=== PATIENT | male | born 1945 | race Caucasian/White ===

== ENCOUNTER 2016-12-08 20:34 | Inpatient (IN) ==
--- NOTE | 2016-12-08 20:47 | Emergency Department Note ---
Disposition Clinical Impression: Pneumonia Disposition: Admitted As Inpatient Condition: Good General Adult HPI - General Chief complaint: ED Dizziness Stated complaint: CONGESTION Time Seen by Provider: 12/08/16 20:36 Source: patient, EMS Limitations: no limitations - History of Present Illness Pain Scale: 0 - Related Data Home Medications Medication Instructions Recorded Confirmed Lisinopril [Zestril] 10 mg PO HS 01/27/15 12/08/16 Simvastatin [Zocor] 40 mg PO HS 01/27/15 12/08/16 Folic Acid/Vit Bcomp,C [Folbee 5 mg PO DAILY 12/08/16 12/08/16 Plus Tablet] Oxycodone HCl/Acetaminophen 1 - 2 each PO Q6H PRN 12/08/16 12/08/16 [Percocet 5-325 mg Tablet] Trazodone HCl 100 - 150 mg PO HS 12/08/16 12/08/16 Allergies Allergy/AdvReac Type Severity Reaction Status Date / Time Sulfa (Sulfonamide Allergy Rash Verified 01/13/15 09:12 Antibiotics) sulfamethoxazole Allergy Rash Verified 01/13/15 09:12 [From Bactrim] trimethoprim Allergy Rash Verified 01/13/15 09:12 atorvastatin [From Lipitor] AdvReac Muscle Pain Verified 01/13/15 09:12 Past Medical History - Past Medical History Medical history: Reports: hyperlipidemia, hypertension, myocardial infarction Psychiatric history: Reports: no psych history - Social History Smoking Status: Current every day smoker Smokeless Tobacco Status: No Alcohol use: Reports: none Drug use: Reports: none Physical Exam - General Limitations: no limitations General appearance: alert Course Vital Signs Temperature 102.3 F H 12/08/16 20:41 Pulse Rate 98 12/08/16 20:41 Respiratory Rate 18 12/08/16 20:41 Blood Pressure 112/76 12/08/16 20:41 O2 Sat by Pulse Oximetry 95 12/08/16 20:41 Temperature 102.3 F H 12/08/16 20:41 Pulse Rate 98 12/08/16 20:41 Respiratory Rate 18 12/08/16 20:41 Blood Pressure 112/76 12/08/16 20:41 O2 Sat by Pulse Oximetry 95 12/08/16 20:41 Oxygen Delivery Oxygen Delivery Room Air Medical Decision Making - Lab Data Result diagrams: 12/08/16 20:53 12/08/16 20:53 Lab Results 12/08/16 12/08/16 12/08/16 Range/Units 20:53 20:53 20:53 WBC 13.3 H (4.3-11.1) K/mcL RBC 4.39 (4.19-5.50) M/mcL Hgb 14.7 (12.9-16.9) g/dL Hct 42.9 (37.5-50.1) % MCV 97.7 (83.0-100.0) fL MCH 33.5 H (28.0-33.3) pg MCHC 34.3 (31.6-35.5) g/dL RDW 12.0 (11.5-14.5) % Plt Count 176 (140-400) K/mcL MPV 8.4 L (9.4-12.4) fL Immature Gran % 0.4 (0-4) % Seg Neutrophils % 93.1 % Lymphocytes % 2.4 % Monocytes % 3.9 % Eosinophils % 0.0 % Basophils % 0.2 % Neutrophils # 12.4 H (1.6-8.9) K/mcL Lymphocytes # 0.3 L (0.6-4.6) K/mcL Monocytes # 0.5 (0.0-1.3) K/mcL Eosinophils # 0.0 (0.0-0.6) K/mcL Basophils # 0.0 (0.0-0.2) K/mcL Sodium 136 (136-145) mEq/L Potassium 4.1 (3.5-4.5) mEq/L Chloride 103 (98-109) mEq/L Carbon Dioxide 24 (19-29) mEq/L BUN 18 (8-26) mg/dL Creatinine 1.12 (0.72-1.25) mg/dL Est GFR ( Amer) > 60 (> 60) Est GFR (Non-Af Amer) > 60 (> 60) BUN/Creatinine Ratio 16 (6-26) Glucose 140 H (70-99) mg/dL Calculated Osmolality 286 (280-300) Lactic Acid (0.5-2.2) mmol/L Calcium 9.4 (8.6-10.8) mg/dL Phosphorus 1.4 L (2.3-4.7) mg/dL Magnesium 1.6 (1.6-2.6) mg/dL Total Bilirubin 0.8 (0.2-1.2) mg/dL Direct Bilirubin 0.4 (0.0-0.5) mg/dL Indirect Bilirubin 0.4 (0.0-1.2) mg/dL AST 16 (5-34) Units/L ALT 12 (0-55) Units/L Alkaline Phosphatase 81 (38-126) Units/L Troponin I 0.01 (0-0.03) ng/mL Serum Total Protein 7.4 (6.0-8.3) g/dL Albumin 3.5 (3.5-5.0) g/dL Globulin 3.9 H (2.4-3.5) g/dL Albumin/Globulin Ratio 0.9 L (1.1-2.2) Urine Color (Yellow) Urine Clarity (Clear) Urine pH (5.0-8.0) pH Units Ur Specific [place] (1.010-1.025) Urine Protein (Neg-Trace) mg/dL Urine Glucose (UA) (Normal) mg/dL Urine Ketones (Negative) mg/dL Urine Blood (Negative) Urine Nitrite (Negative) Urine Bilirubin (Negative) Urine Urobilinogen (Normal) mg/dL Ur Leukocyte Esterase (Negative) Urine Microscopic RBC (0-3) per hpf Urine Microscopic WBC (0-3) per hpf Ur Squamous Epith Cells (None-Few) per lpf Urine Bacteria (None-Few) per hpf Hyaline Casts (None-Few) per lpf Ur Culture Indicated? (NO) Specimen Rejected 12/08/16 12/08/16 12/08/16 Range/Units 21:13 21:14 21:25 WBC (4.3-11.1) K/mcL RBC (4.19-5.50) M/mcL Hgb (12.9-16.9) g/dL Hct (37.5-50.1) % MCV (83.0-100.0) fL MCH (28.0-33.3) pg MCHC (31.6-35.5) g/dL RDW (11.5-14.5) % Plt Count (140-400) K/mcL MPV (9.4-12.4) fL Immature Gran % (0-4) % Seg Neutrophils % % Lymphocytes % % Monocytes % % Eosinophils % % Basophils % % Neutrophils # (1.6-8.9) K/mcL Lymphocytes # (0.6-4.6) K/mcL Monocytes # (0.0-1.3) K/mcL Eosinophils # (0.0-0.6) K/mcL Basophils # (0.0-0.2) K/mcL Sodium (136-145) mEq/L Potassium (3.5-4.5) mEq/L Chloride (98-109) mEq/L Carbon Dioxide (19-29) mEq/L BUN (8-26) mg/dL Creatinine (0.72-1.25) mg/dL Est GFR ( Amer) (> 60) Est GFR (Non-Af Amer) (> 60) BUN/Creatinine Ratio (6-26) Glucose (70-99) mg/dL Calculated Osmolality (280-300) Lactic Acid 2.3 H (0.5-2.2) mmol/L Calcium (8.6-10.8) mg/dL Phosphorus (2.3-4.7) mg/dL Magnesium (1.6-2.6) mg/dL Total Bilirubin (0.2-1.2) mg/dL Direct Bilirubin (0.0-0.5) mg/dL Indirect Bilirubin (0.0-1.2) mg/dL AST (5-34) Units/L ALT (0-55) Units/L Alkaline Phosphatase (38-126) Units/L Troponin I (0-0.03) ng/mL Serum Total Protein (6.0-8.3) g/dL Albumin (3.5-5.0) g/dL Globulin (2.4-3.5) g/dL Albumin/Globulin Ratio (1.1-2.2) Urine Color Yellow (Yellow) Urine Clarity Clear (Clear) Urine pH 8.0 (5.0-8.0) pH Units Ur Specific [place] 1.024 (1.010-1.025) Urine Protein Trace (Neg-Trace) mg/dL Urine Glucose (UA) Normal (Normal) mg/dL Urine Ketones Negative (Negative) mg/dL Urine Blood Negative (Negative) Urine Nitrite Negative (Negative) Urine Bilirubin Negative (Negative) Urine Urobilinogen Normal (Normal) mg/dL Ur Leukocyte Esterase Negative (Negative) Urine Microscopic RBC 0-3 (0-3) per hpf Urine Microscopic WBC 0-3 (0-3) per hpf Ur Squamous Epith Cells Moderate H (None-Few) per lpf Urine Bacteria None Seen (None-Few) per hpf Hyaline Casts None Seen (None-Few) per lpf Ur Culture Indicated? NO (NO) Specimen Rejected Hemolyzed Attestation Statement - Attestation Attestation: I examined this patient and my medical decision-making was reviewed with the Resident Physician. I agree with the documented findings, disposition and treatment plan as described except to the extent set forth below. [id number] time provided Arrives by EMS from home. Complains of dizziness, chest congestion. Patient febrile but nontoxic-appearing. Family at bedside
[2016-12-08] MEDS ORDERED: 0.9 % Sodium Chloride 1,000 ML IVC ONE (20:48)
[2016-12-08 21:03] LABS: Basophils % 0.2 %; Hematocrit 42.9 % (37.5-50.1); Hemoglobin 14.7 g/dL (12.9-16.9); Immature Granulocytes % 0.4 % (0-4); Lymphocytes # 0.3 K/mcL (0.6-4.6); Lymphocytes % 2.4 %; Mean Corpuscular HGB Conc 34.3 g/dL (31.6-35.5); Mean Corpuscular Hemoglobin 33.5 pg (28.0-33.3); Mean Corpuscular Volume 97.7 fL (83.0-100.0); Mean Platelet Volume 8.4 fL (9.4-12.4); Monocytes # 0.5 K/mcL (0.0-1.3); Monocytes % 3.9 %; Neutrophils # 12.4 K/mcL (1.6-8.9); Platelet Count 176 K/mcL (140-400); Red Blood Count 4.39 M/mcL (4.19-5.50); Segmented Neutrophils % 93.1 %
[2016-12-08] MEDS ORDERED: Levofloxacin 500 MG/100 ML 500 MG/100 ML BAG IVPB ONE (21:13)
[2016-12-08 21:22] LABS: Alanine Aminotransferase 12 Units/L (0-55); Albumin 3.5 g/dL (3.5-5.0); Albumin/Globulin Ratio 0.9 (1.1-2.2); Alkaline Phosphatase 81 Units/L (38-126); Aspartate Amino Transferase 16 Units/L (5-34); BUN/Creatinine Ratio 16 (6-26); Bilirubin,Direct 0.4 mg/dL (0.0-0.5); Bilirubin,Indirect 0.4 mg/dL (0.0-1.2); Bilirubin,Total 0.8 mg/dL (0.2-1.2); Blood Urea Nitrogen 18 mg/dL (8-26); Calcium 9.4 mg/dL (8.6-10.8); Carbon Dioxide 24 mEq/L (19-29); Chloride 103 mEq/L (98-109); Globulin 3.9 g/dL (2.4-3.5); Glucose 140 mg/dL (70-99); Magnesium 1.6 mg/dL (1.6-2.6); Osmolality,Calculated 286 (280-300); Phosphorous 1.4 mg/dL (2.3-4.7); Potassium 4.1 mEq/L (3.5-4.5); Sodium 136 mEq/L (136-145); Total Protein 7.4 g/dL (6.0-8.3); eGFR For African Americans > 60 (> 60); eGFR For Non-African Americans > 60 (> 60)
--- NOTE | 2016-12-08 21:28 | Emergency Department Note ---
Disposition Clinical Impression: Pneumonia Qualifiers: Pneumonia type: due to other aerobic Gram-negative bacteria Laterality: left Lung location: lower lobe of lung Qualified Code(s): J15.6 - Pneumonia due to other Gram-negative bacteria Disposition: Admitted As Inpatient Condition: Good Referrals: Elizabeth Dickey DO [Primary Care Provider] - Forms: ED Satisfaction Letter Time of Disposition: 21:51 General Adult HPI - General Chief complaint: ED Dizziness Stated complaint: DIZZINESS/SOB Time Seen by Provider: 12/08/16 20:36 Source: patient, EMS Limitations: no limitations Nursing Notes Reviewed: Yes Vital Signs Reviewed: Yes - History of Present Illness HPI Narrative: 71-year-old male presenting to the emergency department with chief complaint of dizziness and fever. Patient is accompanied by his daughters to have been taking care of him after his 's . They state he has had decreased appetite and trouble keeping his balance for the past 3-4 weeks. They state he acutely got worse the last 2 days and has felt hot at home. Patient has decreased his oral intake and seemed dry today according to family. Patient has a significant past medical history with 2 stent placements in the early s and a stroke around the same time. Patient has lost a follow-up with cardiology. Patient denies any chest pain, shortness of breath, abdominal pain at this time. He states he does have bilateral lower extremity stabbing pain which is chronic and has been occurring for the past 3 months. He has been told that he has neuropathic pain. Pain Scale: 0 - Related Data Home Medications Medication Instructions Recorded Confirmed Lisinopril [Zestril] 10 mg PO HS 01/27/15 01/27/15 Simvastatin [Zocor] 40 mg PO HS 01/27/15 01/27/15 TraZODone 50 - 100 mg PO HS 01/27/15 01/27/15 Previous Rx's Medication Instructions Recorded OxyCODONE/APAP 10/325 [Percocet 1 each PO Q6HR PRN #39 tablet 01/27/15 10/325] Amoxicillin/Clavulanate [Augmentin] 875 mg PO BIDWM #14 tablet 10/24/15 Allergies Allergy/AdvReac Type Severity Reaction Status Date / Time Sulfa (Sulfonamide Allergy Rash Verified 01/13/15 09:12 Antibiotics) sulfamethoxazole Allergy Rash Verified 01/13/15 09:12 [From Bactrim] trimethoprim Allergy Rash Verified 01/13/15 09:12 atorvastatin [From Lipitor] AdvReac Muscle Pain Verified 01/13/15 09:12 All systems ED: reviewed and negative except as stated. Constitutional: Reports: fever, chills, weakness Eyes: Reports: as per HPI ENT ED: Reports: as per HPI Cardiovascular: Denies: chest pain, palpitations Respiratory: Reports: cough, dyspnea, wheezes Gastrointestinal: Denies: abdominal pain, nausea, vomiting Genitourinary: Reports: as per HPI Musculoskeletal: Reports: as per HPI Integumentary: Reports: as per HPI Neurological: Reports: weakness. Denies: numbness, paresthesias Psychiatric: Reports: as per HPI Endocrine: Reports: as per HPI Hematological/Lymphatic: Reports: as per HPI Allergic/Immunologic: Reports: as per HPI Past Medical History - Past Medical History Attestation: Yes The following information was validated with the patient. Medical history: Reports: hyperlipidemia, hypertension, myocardial infarction Psychiatric history: Reports: no psych history - Social History Smoking Status: Current every day smoker Smokeless Tobacco Status: No Alcohol use: Reports: none Drug use: Reports: none Physical Exam - General Limitations: no limitations General appearance: alert, in no apparent distress - Head Head exam: atraumatic, normocephalic, normal inspection - Eye Eye exam: Present: normal appearance. Absent: scleral icterus, conjunctival injection - Chest Chest inspection: Present: normal inspection, symmetric chest wall rise. Absent : tenderness, rash - Respiratory Respiratory exam: Present: other (Bilateral rhonchi noted in the posterior inferior lung ba). Absent: respiratory distress, wheezes, accessory muscle use - Cardiovascular Cardiovascular exam: Present: regular rate, normal rhythm, systolic murmur (4/6 systolic murmur heard in the right second intercostal space) - Abdominal Exam Abdominal exam: Present: soft, Non-Tender. Absent: distention, guarding, rebound - Extremities Exam Extremities exam: Present: normal inspection, full ROM - Neurological Exam Neurological exam: Present: alert, oriented X3 - Psychiatric Psychiatric exam: Present: normal affect, normal mood - Skin Skin exam: Present: warm, intact Course Course Narrative: 71-year-old male presented to the emergency department with chief complaint of dizziness, weakness and fever. Patient is unstable on his feet in the room. His temperature is 102.3. We will begin a sepsis workup at this time. Patient alert and oriented 3 in the room. He is tachycardic but otherwise stable at this time. - Reevaluation(s) Reevaluation #1: All of the patient's lab work has resulted. He has an elevated lactic acid and a possible left lower lobe pneumonia. We will start treatment with IV Levaquin at this time. Patient alert and oriented 3 in the room with stable vital signs at this time. Family at bedside and agrees with plan of admission. We will page the hospitalist. Hospitalist on-call Dr. Chase accepts the patient at this time. Time: 21:51 Vital Signs Temperature 102.3 F H 12/08/16 20:41 Pulse Rate 98 12/08/16 20:41 Respiratory Rate 18 12/08/16 20:41 Blood Pressure 112/76 12/08/16 20:41 O2 Sat by Pulse Oximetry 95 12/08/16 20:41 Temperature 102.3 F H 12/08/16 20:41 Pulse Rate 98 12/08/16 20:41 Respiratory Rate 18 12/08/16 20:41 Blood Pressure 112/76 12/08/16 20:41 O2 Sat by Pulse Oximetry 95 12/08/16 20:41 Oxygen Delivery Oxygen Delivery Room Air Medical Decision Making - Lab Data Result diagrams: 12/08/16 20:53 12/08/16 20:53 Lab Results 12/08/16 12/08/16 12/08/16 Range/Units 20:53 20:53 20:53 WBC 13.3 H (4.3-11.1) K/mcL RBC 4.39 (4.19-5.50) M/mcL Hgb 14.7 (12.9-16.9) g/dL Hct 42.9 (37.5-50.1) % MCV 97.7 (83.0-100.0) fL MCH 33.5 H (28.0-33.3) pg MCHC 34.3 (31.6-35.5) g/dL RDW 12.0 (11.5-14.5) % Plt Count 176 (140-400) K/mcL MPV 8.4 L (9.4-12.4) fL Immature Gran % 0.4 (0-4) % Seg Neutrophils % 93.1 % Lymphocytes % 2.4 % Monocytes % 3.9 % Eosinophils % 0.0 % Basophils % 0.2 % Neutrophils # 12.4 H (1.6-8.9) K/mcL Lymphocytes # 0.3 L (0.6-4.6) K/mcL Monocytes # 0.5 (0.0-1.3) K/mcL Eosinophils # 0.0 (0.0-0.6) K/mcL Basophils # 0.0 (0.0-0.2) K/mcL Sodium 136 (136-145) mEq/L Potassium 4.1 (3.5-4.5) mEq/L Chloride 103 (98-109) mEq/L Carbon Dioxide 24 (19-29) mEq/L BUN 18 (8-26) mg/dL Creatinine 1.12 (0.72-1.25) mg/dL Est GFR ( Amer) > 60 (> 60) Est GFR (Non-Af Amer) > 60 (> 60) BUN/Creatinine Ratio 16 (6-26) Glucose 140 H (70-99) mg/dL Calculated Osmolality 286 (280-300) Lactic Acid (0.5-2.2) mmol/L Calcium 9.4 (8.6-10.8) mg/dL Phosphorus 1.4 L (2.3-4.7) mg/dL Magnesium 1.6 (1.6-2.6) mg/dL Total Bilirubin 0.8 (0.2-1.2) mg/dL Direct Bilirubin 0.4 (0.0-0.5) mg/dL Indirect Bilirubin 0.4 (0.0-1.2) mg/dL AST 16 (5-34) Units/L ALT 12 (0-55) Units/L Alkaline Phosphatase 81 (38-126) Units/L Troponin I 0.01 (0-0.03) ng/mL Serum Total Protein 7.4 (6.0-8.3) g/dL Albumin 3.5 (3.5-5.0) g/dL Globulin 3.9 H (2.4-3.5) g/dL Albumin/Globulin Ratio 0.9 L (1.1-2.2) Urine Color (Yellow) Urine Clarity (Clear) Urine pH (5.0-8.0) pH Units Ur Specific [place] (1.010-1.025) Urine Protein (Neg-Trace) mg/dL Urine Glucose (UA) (Normal) mg/dL Urine Ketones (Negative) mg/dL Urine Blood (Negative) Urine Nitrite (Negative) Urine Bilirubin (Negative) Urine Urobilinogen (Normal) mg/dL Ur Leukocyte Esterase (Negative) Urine Microscopic RBC (0-3) per hpf Urine Microscopic WBC (0-3) per hpf Ur Squamous Epith Cells (None-Few) per lpf Urine Bacteria (None-Few) per hpf Hyaline Casts (None-Few) per lpf Ur Culture Indicated? (NO) Specimen Rejected 12/08/16 12/08/16 12/08/16 Range/Units 21:13 21:14 21:25 WBC (4.3-11.1) K/mcL RBC (4.19-5.50) M/mcL Hgb (12.9-16.9) g/dL Hct (37.5-50.1) % MCV (83.0-100.0) fL MCH (28.0-33.3) pg MCHC (31.6-35.5) g/dL RDW (11.5-14.5) % Plt Count (140-400) K/mcL MPV (9.4-12.4) fL Immature Gran % (0-4) % Seg Neutrophils % % Lymphocytes % % Monocytes % % Eosinophils % % Basophils % % Neutrophils # (1.6-8.9) K/mcL Lymphocytes # (0.6-4.6) K/mcL Monocytes # (0.0-1.3) K/mcL Eosinophils # (0.0-0.6) K/mcL Basophils # (0.0-0.2) K/mcL Sodium (136-145) mEq/L Potassium (3.5-4.5) mEq/L Chloride (98-109) mEq/L Carbon Dioxide (19-29) mEq/L BUN (8-26) mg/dL Creatinine (0.72-1.25) mg/dL Est GFR ( Amer) (> 60) Est GFR (Non-Af Amer) (> 60) BUN/Creatinine Ratio (6-26) Glucose (70-99) mg/dL Calculated Osmolality (280-300) Lactic Acid 2.3 H (0.5-2.2) mmol/L Calcium (8.6-10.8) mg/dL Phosphorus (2.3-4.7) mg/dL Magnesium (1.6-2.6) mg/dL Total Bilirubin (0.2-1.2) mg/dL Direct Bilirubin (0.0-0.5) mg/dL Indirect Bilirubin (0.0-1.2) mg/dL AST (5-34) Units/L ALT (0-55) Units/L Alkaline Phosphatase (38-126) Units/L Troponin I (0-0.03) ng/mL Serum Total Protein (6.0-8.3) g/dL Albumin (3.5-5.0) g/dL Globulin (2.4-3.5) g/dL Albumin/Globulin Ratio (1.1-2.2) Urine Color Yellow (Yellow) Urine Clarity Clear (Clear) Urine pH 8.0 (5.0-8.0) pH Units Ur Specific [place] 1.024 (1.010-1.025) Urine Protein Trace (Neg-Trace) mg/dL Urine Glucose (UA) Normal (Normal) mg/dL Urine Ketones Negative (Negative) mg/dL Urine Blood Negative (Negative) Urine Nitrite Negative (Negative) Urine Bilirubin Negative (Negative) Urine Urobilinogen Normal (Normal) mg/dL Ur Leukocyte Esterase Negative (Negative) Urine Microscopic RBC 0-3 (0-3) per hpf Urine Microscopic WBC 0-3 (0-3) per hpf Ur Squamous Epith Cells Moderate H (None-Few) per lpf Urine Bacteria None Seen (None-Few) per hpf Hyaline Casts None Seen (None-Few) per lpf Ur Culture Indicated? NO (NO) Specimen Rejected Hemolyzed
[2016-12-08 21:37] LABS: Bilirubin,Urine Negative (Negative); Blood,Urine Negative (Negative); Clarity,Urine Clear (Clear); Color,Urine Yellow (Yellow); Glucose,Urine (UA) Normal (Normal); Ketones,Urine Negative (Negative); Leukocyte Esterase,Urine Negative (Negative); Nitrite,Urine Negative (Negative); Protein,Urine Trace mg/dL (Neg-Trace); Specific Gravity,Urine 1.024 (1.010-1.025); Urobilinogen,Urine Normal (Normal)
[2016-12-08 21:40] LABS: Bacteria,Urine None Seen per hpf (None-Few); Hyaline Casts,Urine None Seen per lpf (None-Few); RBC,Urine 0-3 per hpf (0-3); Squamous Epithelial Cell,Urine Moderate per lpf (None-Few); WBC,Urine 0-3 per hpf (0-3)
[2016-12-08] MEDS ORDERED: Nicotine 21 MG PATCH.TD24 TD ONE (21:53)
[2016-12-08] MEDS ORDERED: Levofloxacin 250 MG/50 ML 250 MG/50 ML BAG IVPB ONE (22:47)
--- NOTE | 2016-12-09 00:33 | Internal Med History&Physical ---
<ChaseJeancarlos - Last Filed: 12/09/16 00:44> Date of Encounter: 12/09/16 Time of Encounter: 00:26 Assessment and Plan (1) Sepsis Current visit: Yes Status: Acute Secondary to community acquired pneumonia as seen on CXR; 3/4 SIRS upon admission (WBC, tachy, fever) Will hydrate with NS @ 100 ml/hr as he does appear mildly dry on exam Start on Levaquin until cultures return Qualifiers: Qualified Code(s): A41.9 - Sepsis, unspecified organism (2) Community acquired pneumonia Current visit: Yes Status: Acute CXR demonstrated left lower lobe consolidation and he does have corresponding rales in that area Will start on Levaquin 750 mg IV daily and await cultures prior to de-escalation Obtaining urinary strep and legionella antigens Qualifiers: Laterality: left Lung location: lower lobe of lung Qualified Code(s): J18.1 - Lobar pneumonia, unspecified organism (3) Weakness Current visit: Yes Status: Chronic Unclear etiology at this time, but likely multifactorial in setting of acute infection Cannot rule out intracranial abnormalities such as cerebellar lesions, so will obtain head CT w/o contrast for now He also has systolic murmur so we will further evaluate with echocardiogram (4) COPD (chronic obstructive pulmonary disease) with emphysema Current visit: Yes Status: Suspected Although never formally diagnosed, he has moderately severe emphysema seen on CT last month Will certainly benefit from outpatient PFT to assess severity of disease and may need breathing treatments/oxygen upon discharge Qualifiers: Qualified Code(s): J43.9 - Emphysema, unspecified (5) Hypertension Current visit: Yes Status: Chronic Blood pressures WNL upon arrival Will continue home Lisinopril and monitor vitals closely Qualifiers: Qualified Code(s): I10 - Essential (primary) hypertension (6) Hyperlipidemia Current visit: Yes Status: Chronic Continue home Zocor dose Qualifiers: Hyperlipidemia type: unspecified Qualified Code(s): E78.5 - Hyperlipidemia , unspecified (7) MOSES (obstructive sleep apnea) Current visit: Yes Status: Suspected Daughters state patient is heavy snorer and has witnessed apnea Will benefit from outpatient sleep study and may qualify for CPAP (8) DVT prophylaxis Current visit: Yes Status: Acute Heparin 5000 units BID Internal Medicine - H&P: HPI Chief complaint: fever Admitted From: Home Plans for Post Hospital Care: Home History of present illness: Mr. Lugo is a 71 year old male who presents with fever and generalized weakness. He is accompanied by two daughters whom live with patient and are able to assist with history. He states that he was at the [employer] festival earlier today and felt hot and sweaty. He then went home and felt the chills. He has no history of pneumonia, recent hospitalizations, or immunosuppression. He has not be formally diagnosed with COPD but he did have a CT scan last month with showed moderately severe emphysema. He does have a chronic cough with clear /yellow sputum and continues to smoke. Patient's daughters were particularly concerned about his weakness and his gait as he tends to shuffle his feet. He does have history of falls but has never had any syncope and has never had this worked up. Of note, patient did have a ministroke without any deficits, [place] with stents in the 90s, and stable AAA. He currently denies any chest pain, shortness of breath, nausea, vomiting, diarrhea, urinary problems. Past Med Surg Social Fam HX - Past Medical History Medical history: hyperlipidemia, hypertension, myocardial infarction Psychiatric history: no psych history - Social History Smoking Status: Current every day smoker Packs per day: 1.5 Smokeless Tobacco Status: No Alcohol use: none Drug use: none - Family History Mother Living Status: Hx Family Cardiac Disorders: Yes ("Open Heart Surgery") Hx Family Endocrine Disorder: Yes (Diabetes) Father Living Status: Hx Family Cardiac Disorders: Yes ("Open Heart Surgery") Internal Medicine - H&P: Meds Lisinopril [Zestril] 10 mg PO HS 01/27/15 [History] Simvastatin [Zocor] 40 mg PO HS 01/27/15 [History] Folic Acid/Vit Bcomp,C [Folbee Plus Tablet] 5 mg PO DAILY 12/08/16 [History] Oxycodone HCl/Acetaminophen [Percocet 5-325 mg Tablet] 1 each PO Q6H PRN [History] Trazodone HCl 150 mg PO HS 12/08/16 [History] 3 Allergy/AdvReac Type Severity Reaction Status Date / Time Sulfa (Sulfonamide Allergy Rash Verified 01/13/15 09:12 Antibiotics) sulfamethoxazole Allergy Rash Verified 01/13/15 09:12 [From Bactrim] trimethoprim Allergy Rash Verified 01/13/15 09:12 atorvastatin [From Lipitor] AdvReac Muscle Pain Verified 01/13/15 09:12 All Systems PM: A 10-system review of systems was performed and is negative for pertinent findings except as documented above in the HPI. - Constitutional Constitutional: fever(s), falls, lethargy, weakness, weight loss, no chills, no night sweats - EENT Eyes: no change in vision, no discharge, no pain, no photophobia Ears: no ear discharge, no ear pain, no tinnitus Nose, mouth and throat: no dysphagia, no nasal discharge, no neck pain, no sore throat - Cardiovascular Cardiovascular ROS IM: lightheadedness, no chest pain, no diaphoresis, no dyspnea, no palpitations, no syncope - Respiratory Respiratory: cough, snoring, excessive phlegm production, pain with cough, no dyspnea, no wheezing - Gastrointestinal Gastrointestinal: no abdominal pain, no diarrhea, no hematemesis, no hematochezia, no melena, no nausea, no vomiting - Musculoskeletal Musculoskeletal ROS IM: no numbness, no tingling - Integumentary Integumentary IM: no rash, no unusual bruising - Neurological Neurological ROS: abnormal gait, frequent falls, memory loss (mild forgetfulness per daughters), weakness (generalized), no confusion, no convulsions, no focal weakness, no numbness, no tingling, no tremor(s) - Hematologic/Lymphatic Hematologic/Lymphatic: no easy bruising - Constitutional Vitals: Temp Pulse Resp BP Pulse Ox 99.8 F H 92 18 96/58 96 12/08/16 22:57 12/08/16 22:00 12/08/16 22:57 12/08/16 22:57 12/09/16 00:11 General appearance: Present: cooperative, pleasant, no acute distress, loss of weight, answers questions appropriately - Head Head exam: Present: atraumatic, normocephalic - Eye Eye exam: Present: PERRL, conjuntiva pink, sclera anicteric - Neck Neck exam general surgery: Present: supple, trachea midline. Absent: lymphadenopathy - Respiratory Respiratory exam: Present: rales (left lower lobe). Absent: accessory muscle use, rhonchi, wheezes - Cardiovascular Cardiovascular exam: Present: RRR, +S1, +S2, systolic murmur. Absent: diastolic murmur, gallop, rubs - GI/Abdominal GI/Abdominal exam: Present: normal bowel sounds, soft, no peritoneal signs. Absent: distended, tenderness - Extremities Exam Extremities exam: Present: warm, radial pulses palpable and symmetrical. Absent : calf tenderness, cyanotic, pedal edema - Neurological Exam Neurological exam: Present: alert, oriented X3, no focal deficits. Absent: facial droop, speech deficit Additional comments: normal heel to almonte test and rapid alternating movements bilaterally does have mild shuffling when walking but no tremors noted - Skin Skin exam: Present: dry, intact Internal Med - H&P Results - Labs CBC & Chem 7: 12/08/16 20:53 12/08/16 20:53 <Francisco J Chase - Last Filed: 12/09/16 04:09> Date of Encounter: 12/09/16 Internal Medicine - H&P: HPI History of present illness: Mr. Lugo is a 71 year old male All Systems PM: A 10-system review of systems was performed and is negative for pertinent findings except as documented above in the HPI. - Constitutional Vitals: Temp Pulse Resp BP Pulse Ox 98.5 F 70 16 102/64 100 12/09/16 03:37 12/09/16 03:37 12/09/16 03:37 12/09/16 03:37 12/09/16 03:37 Internal Med - H&P Results - Labs CBC & Chem 7: 12/08/16 20:53 12/08/16 20:53 - Attending Attestation I have seen and examined the patient independently. I have discussed with resident DR Chase regarding the management plan. Agree with the documentation. Patient to present with fever, elevated WBC, and tachycardia, meets criteria of sepsis. Resource of infection is pneumonia. Will place patient on antibiotic and IV fluid. Closely monitor patient.
[2016-12-09] MEDS ORDERED: Ondansetron ODT 4 MG TAB.RAPDIS SL PRN (00:39)
[2016-12-09] MEDS ORDERED: Naloxone 0.4 MG/ML INJ IVP PRN (00:39)
[2016-12-09] MEDS ORDERED: Acetaminophen 325 MG TABLET PO PRN (00:39)
[2016-12-09] MEDS ORDERED: Ipratropium/Albuterol Neb 3 ML IH PRN (00:45)
[2016-12-09] MEDS: traZODone 50 MG TABLET PO SCH ×2 (00:59→21:36)
[2016-12-09] MEDS: 0.9 % Sodium Chloride 1,000 ML IVC SCH ×2 (01:10→13:59)
[2016-12-09] MEDS: Benzonatate 100 MG CAPSULE PO PRN ×2 (03:50→12:05)
[2016-12-09 05:30] LABS: Basophils % 0.1 %; Eosinophils % 0.1 %; Hematocrit 36.2 % (37.5-50.1); Hemoglobin 12.4 g/dL (12.9-16.9); Immature Granulocytes % 0.4 % (0-4); Lymphocytes # 0.9 K/mcL (0.6-4.6); Lymphocytes % 5.4 %; Mean Corpuscular HGB Conc 34.3 g/dL (31.6-35.5); Mean Corpuscular Hemoglobin 33.4 pg (28.0-33.3); Mean Corpuscular Volume 97.6 fL (83.0-100.0); Mean Platelet Volume 8.4 fL (9.4-12.4); Monocytes # 1.2 K/mcL (0.0-1.3); Monocytes % 7.3 %; Neutrophils # 14.3 K/mcL (1.6-8.9); Platelet Count 150 K/mcL (140-400); Red Blood Count 3.71 M/mcL (4.19-5.50); Red Cell Distribution Width 12.2 % (11.5-14.5); Segmented Neutrophils % 86.7 %
[2016-12-09] MEDS: *HR* Heparin 5,000 UNIT/ML VIAL SQ SCH ×2 (05:40→18:00)
[2016-12-09] MEDS: *HR* OxyCODONE/APAP 5/325 TABLET PO PRN ×3 (05:42→18:00)
[2016-12-09 05:44] LABS: BUN/Creatinine Ratio 19 (6-26); Blood Urea Nitrogen 16 mg/dL (8-26); Calcium 8.5 mg/dL (8.6-10.8); Carbon Dioxide 22 mEq/L (19-29); Chloride 105 mEq/L (98-109); Glucose 111 mg/dL (70-99); Osmolality,Calculated 280 (280-300); Potassium 3.9 mEq/L (3.5-4.5); Sodium 134 mEq/L (136-145); eGFR For African Americans > 60 (> 60); eGFR For Non-African Americans > 60 (> 60)
[2016-12-09 06:06] LABS: Thyroid Stimulating Hormone 0.305 mcIU/mL (0.350-4.840)
[2016-12-09] MEDS: Nicotine 14 MG PATCH.TD24 TD SCH (10:27)
--- NOTE | 2016-12-09 12:20 | Internal Med Progress Note ---
Date of Encounter: 12/09/16 Time of Encounter: 12:20 - Assessment and plan (1) Sepsis Current Visit: Yes Status: Acute Assessment and plan: Patient presented with fever and chills, tachycardia, tachypnea, leukocytosis with source of sepsis being pneumonia He is on Levaquin, pneumonia is possibly community acquired with suspected strep Continue same Send sputum culture Follow blood culture, Patient has no O2 requriement at this time, he is hemodynamically stable Qualifiers: Sepsis type: sepsis due to unspecified organism Qualified Code(s): A41.9 - Sepsis, unspecified organism (2) DVT prophylaxis Current Visit: Yes Status: Acute Assessment and plan: Heparin SQ (3) Pneumonia Current Visit: Yes Status: Acute Assessment and plan: As in sepsis Urine Legionella Ag and step Ag negative Influenza negative patient reports never getting flu or pneumococal vaccine Will administer prior to discharge Qualifiers: Pneumonia type: due to unspecified organism Laterality: left Lung location: lower lobe of lung Qualified Code(s): J18.1 - Lobar pneumonia, unspecified organism (4) Hyperlipidemia Current Visit: Yes Status: Chronic Assessment and plan: Continue home meds Qualifiers: Hyperlipidemia type: unspecified Qualified Code(s): E78.5 - Hyperlipidemia , unspecified (5) Hypertension Current Visit: Yes Status: Chronic Assessment and plan: Controlled, continue current meds Qualifiers: Hypertension type: essential hypertension Qualified Code(s): I10 - Essential (primary) hypertension (6) Weakness Current Visit: Yes Status: Chronic Assessment and plan: Dates to 2-3 months prior to admission Check Vit D level PTOT eval (7) COPD (chronic obstructive pulmonary disease) with emphysema Current Visit: Yes Status: Chronic Assessment and plan: Emphysema per PT Patient is a lifetime smoker Ensure PFT as out-patient Repeat imaging recommended after treatment Qualifiers: Emphysema type: unspecified Qualified Code(s): J43.9 - Emphysema, unspecified (8) Tobacco abuse Current Visit: Yes Status: Chronic Assessment and plan: Cessation encouraged NRT (9) Aortic stenosis Current Visit: Yes Status: Chronic Assessment and plan: Moderate per ECHO Asymptomatic No indication for cardiology eval at this time Qualifiers: Cardiac valve disease etiology: nonrheumatic Qualified Code(s): I35.0 - Nonrheumatic aortic (valve) stenosis - Subjective Interval history: 71 M with PMH of HTN, HLD, Tobacco abuse Seen and examined at bedside with family His main complain is generalized weakness and not having enough strength for his daily activities He is admitted and being managed for Sepsis secondary to Right lung pneumonia Incidental finding of moderate and Emphysema he also reports multiple vitamin deficiencies, Vit B12 level WNL, will check Vit D - Constitutional Vitals: Temp Pulse Resp BP Pulse Ox 98.4 F 92 17 103/64 97 12/09/16 11:34 12/09/16 11:34 12/09/16 11:34 12/09/16 11:34 12/09/16 11:34 General appearance: Present: cooperative, pleasant, no acute distress, loss of weight, answers questions appropriately - Head Head exam: Present: atraumatic, normocephalic - Eye Eye exam: Present: PERRL, conjuntiva pink, sclera anicteric Pupils: Present: PERRL - Neck Neck exam general surgery: Present: supple, trachea midline. Absent: lymphadenopathy - Respiratory Respiratory exam: Present: rhonchi, wheezes - Cardiovascular Cardiovascular exam: Present: RRR, +S1, +S2, systolic murmur ( murmur). Absent: diastolic murmur, gallop, rubs - GI/Abdominal GI/Abdominal exam: Present: normal bowel sounds, soft, no peritoneal signs. Absent: distended, tenderness - Extremities Exam Extremities exam: Present: warm, radial pulses palpable and symmetrical. Absent : calf tenderness, cyanotic, pedal edema - Neurological Exam Neurological exam: Present: alert, CN II-XII intact, oriented X3, no focal deficits. Absent: pronater drift, facial droop, speech deficit - Skin Skin exam: Present: dry, intact Internal Medicine: Result - Labs CBC & Chem 7: 12/09/16 05:25 12/09/16 05:25 Labs: Short CBC 12/09/16 Range/Units 05:25 WBC 16.4 H (4.3-11.1) K/mcL Hgb 12.4 L D (12.9-16.9) g/dL Hct 36.2 L (37.5-50.1) % Plt Count 150 (140-400) K/mcL Neutrophils # 14.3 H (1.6-8.9) K/mcL BMP 12/09/16 05:25 Sodium 134 L Potassium 3.9 Chloride 105 Carbon Dioxide 22 BUN 16 Creatinine 0.84 Glucose 111 H Calcium 8.5 L - Impressions Impressions Head CT 12/09/16 08:30 IMPRESSION: 1. No evidence of acute intracranial abnormality. 2. Minimal-mild paranasal sinus disease as described above. D/ / 12/09/2016 09:07:09 Victorino Sanchez MD / [facility] Interpreting Provider: Victorino Sanchez MD Consult Discharge Plan - Plan Referrals: Elizabeth Dickey DO [Primary Care Provider] -
--- NOTE | 2016-12-09 18:31 | Electrocardiograph Report ---
[address] [place] [address] Test Date: 2016-12-08 Pat Name: Sergo Lugo Department: 103 Room: 3B44 Gender: M Art Educator: : 1945 Requested By: Flaquita Mcdaniel Order Number: [id number] Reading MD: Clayton Casas DO Measurements Intervals [place] Rate: 99 P: 52 OR: 188 QRS: 75 QRSD: 103 T: 25 QT: 330 QTc: 386 Interpretive Statements SINUS RHYTHM Poor R wave progression Possible inferior myocardial infarction, age undetermined Electronically Signed On 12-09-2016 18:29:59 EDT by Clayton Casas DO
[2016-12-09] MEDS ORDERED: Nicotine 21 MG PATCH.TD24 TD ONE (21:53)
[2016-12-09] MEDS: Levofloxacin 750 MG/150 ML 750 MG/150 ML BAG IVPB SCH (23:13)
[2016-12-10] MEDS: Benzonatate 100 MG CAPSULE PO PRN ×3 (00:13→20:45)
[2016-12-10] MEDS: *HR* OxyCODONE/APAP 5/325 TABLET PO PRN ×2 (00:13→09:56)
[2016-12-10 03:53] LABS: Basophils % 0.4 %; Eosinophils # 0.1 K/mcL (0.0-0.6); Eosinophils % 1.2 %; Hematocrit 35.4 % (37.5-50.1); Hemoglobin 11.9 g/dL (12.9-16.9); Immature Granulocytes % 0.6 % (0-4); Lymphocytes # 1.7 K/mcL (0.6-4.6); Lymphocytes % 20.4 %; Mean Corpuscular HGB Conc 33.6 g/dL (31.6-35.5); Mean Corpuscular Hemoglobin 33.1 pg (28.0-33.3); Mean Corpuscular Volume 98.6 fL (83.0-100.0); Mean Platelet Volume 9.1 fL (9.4-12.4); Monocytes # 0.6 K/mcL (0.0-1.3); Monocytes % 7.3 %; Neutrophils # 5.7 K/mcL (1.6-8.9); Platelet Count 138 K/mcL (140-400); Red Blood Count 3.59 M/mcL (4.19-5.50); Red Cell Distribution Width 12.2 % (11.5-14.5); Segmented Neutrophils % 70.1 %
[2016-12-10 04:08] LABS: BUN/Creatinine Ratio 17 (6-26); Blood Urea Nitrogen 15 mg/dL (8-26); Calcium 8.7 mg/dL (8.6-10.8); Carbon Dioxide 23 mEq/L (19-29); Chloride 109 mEq/L (98-109); Glucose 89 mg/dL (70-99); Osmolality,Calculated 286 (280-300); Potassium 3.9 mEq/L (3.5-4.5); Sodium 138 mEq/L (136-145); eGFR For African Americans > 60 (> 60); eGFR For Non-African Americans > 60 (> 60)
[2016-12-10] MEDS: *HR* Heparin 5,000 UNIT/ML VIAL SQ SCH ×2 (06:41→18:52)
[2016-12-10] MEDS: Nicotine 14 MG PATCH.TD24 TD SCH (09:56)
--- NOTE | 2016-12-10 12:12 | Internal Med Progress Note ---
Date of Encounter: 12/10/16 Time of Encounter: 12:30 - Assessment and plan (1) Sepsis Current Visit: Yes Status: Acute Assessment and plan: Patient presented with fever and chills, tachycardia, tachypnea, leukocytosis with source of sepsis being pneumonia He is on Levaquin, pneumonia is possibly community acquired with suspected strep Continue same Sputum and blood culture prelim negative Leukocytosis resolved Patient has no O2 requriement at this time, he is hemodynamically stable Anticipate d/c am Qualifiers: Sepsis type: sepsis due to unspecified organism Qualified Code(s): A41.9 - Sepsis, unspecified organism (2) DVT prophylaxis Current Visit: Yes Status: Acute Assessment and plan: Heparin SQ (3) Pneumonia Current Visit: Yes Status: Acute Assessment and plan: As in sepsis Urine Legionella Ag and step Ag negative Influenza negative patient reports never getting flu or pneumococal vaccine Will administer prior to discharge Qualifiers: Pneumonia type: due to unspecified organism Laterality: left Lung location: lower lobe of lung Qualified Code(s): J18.1 - Lobar pneumonia, unspecified organism (4) Hyperlipidemia Current Visit: Yes Status: Chronic Assessment and plan: Continue home meds Qualifiers: Hyperlipidemia type: unspecified Qualified Code(s): E78.5 - Hyperlipidemia , unspecified (5) Hypertension Current Visit: Yes Status: Chronic Assessment and plan: Controlled, continue current meds Qualifiers: Hypertension type: essential hypertension Qualified Code(s): I10 - Essential (primary) hypertension (6) Weakness Current Visit: Yes Status: Chronic Assessment and plan: Dates to 2-3 months prior to admission Vit D lebvel ordered and pending PTOT eval (7) COPD (chronic obstructive pulmonary disease) with emphysema Current Visit: Yes Status: Chronic Assessment and plan: Emphysema per Chest CT Patient is a lifetime smoker Ensure PFT as out-patient Repeat imaging recommended after treatment Qualifiers: Emphysema type: unspecified Qualified Code(s): J43.9 - Emphysema, unspecified (8) Tobacco abuse Current Visit: Yes Status: Chronic Assessment and plan: Cessation encouraged NRT (9) Aortic stenosis Current Visit: Yes Status: Chronic Assessment and plan: Moderate per ECHO Asymptomatic No indication for cardiology eval at this time Qualifiers: Cardiac valve disease etiology: nonrheumatic Qualified Code(s): I35.0 - Nonrheumatic aortic (valve) stenosis - Subjective Interval history: 71 M with PMH of HTN, HLD, Tobacco abuse Seen and examined at bedside with family He is admitted and being managed for Sepsis secondary to Right lung pneumonia Incidental finding of moderate and Emphysema No new complains Cough is improving Awaiting PTOT eval - Constitutional Vitals: Temp Pulse Resp BP Pulse Ox 97.6 F 66 16 112/67 96 12/10/16 11:47 12/10/16 11:47 12/10/16 11:47 12/10/16 11:47 12/10/16 11:47 General appearance: Present: cooperative, pleasant, no acute distress, loss of weight, answers questions appropriately - Head Head exam: Present: atraumatic, normocephalic - Eye Eye exam: Present: PERRL, conjuntiva pink, sclera anicteric Pupils: Present: PERRL - Neck Neck exam general surgery: Present: supple, trachea midline. Absent: lymphadenopathy - Respiratory Respiratory exam: Present: rhonchi - Cardiovascular Cardiovascular exam: Present: RRR, +S1, +S2, systolic murmur - GI/Abdominal GI/Abdominal exam: Present: normal bowel sounds, soft, no peritoneal signs. Absent: distended, tenderness - Extremities Exam Extremities exam: Present: warm, radial pulses palpable and symmetrical. Absent : calf tenderness, cyanotic, pedal edema - Neurological Exam Neurological exam: Present: alert, CN II-XII intact, oriented X3, no focal deficits. Absent: pronater drift, facial droop, speech deficit - Skin Skin exam: Present: dry, intact Internal Medicine: Result - Labs CBC & Chem 7: 12/10/16 03:11 12/10/16 03:11 Labs: Short CBC 12/10/16 Range/Units 03:11 WBC 8.1 D (4.3-11.1) K/mcL Hgb 11.9 L (12.9-16.9) g/dL Hct 35.4 L (37.5-50.1) % Plt Count 138 L (140-400) K/mcL Neutrophils # 5.7 (1.6-8.9) K/mcL BMP 12/10/16 03:11 Sodium 138 Potassium 3.9 Chloride 109 Carbon Dioxide 23 BUN 15 Creatinine 0.90 Glucose 89 Calcium 8.7 Consult Discharge Plan - Plan Referrals: Elizabeth Dickey DO [Primary Care Provider] - 12/16/16 10:00 am
[2016-12-10] MEDS: traZODone 50 MG TABLET PO SCH (20:45)
[2016-12-10] MEDS: Levofloxacin 750 MG/150 ML 750 MG/150 ML BAG IVPB SCH (23:07)
[2016-12-11 05:38] LABS: Basophils % 0.5 %; Eosinophils # 0.1 K/mcL (0.0-0.6); Eosinophils % 1.9 %; Hematocrit 36.2 % (37.5-50.1); Hemoglobin 12.2 g/dL (12.9-16.9); Immature Granulocytes % 0.6 % (0-4); Lymphocytes # 1.2 K/mcL (0.6-4.6); Lymphocytes % 19.6 %; Mean Corpuscular HGB Conc 33.7 g/dL (31.6-35.5); Mean Corpuscular Volume 97.8 fL (83.0-100.0); Mean Platelet Volume 8.9 fL (9.4-12.4); Monocytes # 0.4 K/mcL (0.0-1.3); Monocytes % 6.7 %; Neutrophils # 4.4 K/mcL (1.6-8.9); Platelet Count 163 K/mcL (140-400); Red Cell Distribution Width 12.1 % (11.5-14.5); Segmented Neutrophils % 70.7 %
[2016-12-11] MEDS: *HR* Heparin 5,000 UNIT/ML VIAL SQ SCH (05:53)
[2016-12-11] MEDS: Nicotine 14 MG PATCH.TD24 TD SCH (09:41)
[2016-12-11] MEDS ORDERED: Pneumococcal 23 Valent Vaccine 25 MCG/0.5 ML VIAL IM ONE (09:59)
[2016-12-11] MEDS ORDERED: FLU VACC QS2017-18(6M-36M)/PF 0.5 ML SYRINGE IM ONE (10:00)
[2016-12-11] MEDS ORDERED: FLUARIX QUAD 2017-18 36MOS UP/PF 0.5 ML SYRINGE IM ONE (10:03)
--- NOTE | 2016-12-11 10:42 | Discharge Summary ---
Date of Encounter: 12/11/16 Time of Encounter: 10:10 - Discharge Diagnosis (1) Sepsis Priority: Primary Status: Resolved Qualifiers: Sepsis type: sepsis due to unspecified organism Qualified Code(s): A41.9 - Sepsis, unspecified organism (2) DVT prophylaxis Priority: Primary Status: Acute (3) Pneumonia Priority: Primary Status: Acute Qualifiers: Pneumonia type: due to unspecified organism Laterality: left Lung location: lower lobe of lung Qualified Code(s): J18.1 - Lobar pneumonia, unspecified organism (4) Hyperlipidemia Priority: Secondary Status: Chronic Qualifiers: Hyperlipidemia type: unspecified Qualified Code(s): E78.5 - Hyperlipidemia , unspecified (5) Hypertension Priority: Secondary Status: Chronic Qualifiers: Hypertension type: essential hypertension Qualified Code(s): I10 - Essential (primary) hypertension (6) Weakness Priority: Secondary Status: Chronic (7) COPD (chronic obstructive pulmonary disease) with emphysema Priority: Secondary Status: Chronic Qualifiers: Emphysema type: unspecified Qualified Code(s): J43.9 - Emphysema, unspecified (8) Tobacco abuse Priority: Secondary Status: Chronic (9) Aortic stenosis Priority: Secondary Status: Chronic Qualifiers: Cardiac valve disease etiology: nonrheumatic Qualified Code(s): I35.0 - Nonrheumatic aortic (valve) stenosis - Discharge Medications Prescriptions: Benzonatate [Tessalon] 100 mg PO TID PRN #15 capsule PRN Reason: Cough levoFLOXacin [Levaquin] 750 mg PO DAILY #4 tablet Nicotine Patch [Nicoderm] 14 mg TD DAILY #15 patch.td24 Home Medications: Lisinopril [Zestril] 10 mg PO HS 01/27/15 [History] Simvastatin [Zocor] 40 mg PO HS 01/27/15 [History] Folic Acid/Vit Bcomp,C [Folbee Plus Tablet] 5 mg PO DAILY 12/08/16 [History] Oxycodone HCl/Acetaminophen [Percocet 5-325 mg Tablet] 1 each PO Q6H PRN [History] Trazodone HCl 150 mg PO HS 12/08/16 [History] Benzonatate [Tessalon] 100 mg PO TID PRN #15 capsule 12/11/16 [Rx] Nicotine Patch [Nicoderm] 14 mg TD DAILY #15 patch.td24 10/22/17 [Rx] levoFLOXacin [Levaquin] 750 mg PO DAILY #4 tablet 12/11/16 [Rx] Allergies/Adverse Reactions: 3 Allergy/AdvReac Type Severity Reaction Status Date / Time Sulfa (Sulfonamide Allergy Rash Verified 01/13/15 09:12 Antibiotics) sulfamethoxazole Allergy Rash Verified 01/13/15 09:12 [From Bactrim] trimethoprim Allergy Rash Verified 01/13/15 09:12 atorvastatin [From Lipitor] AdvReac Muscle Pain Verified 01/13/15 09:12 Date of admission: 12/09/16 04:06 Primary care physician: Elizabeth Dickey DO Discharging clinician: Edin Walker Anticipated date of discharge: 12/11/16 - Patient Status Disposition: Home, Self-Care Condition: Good Functional capacity at discharge: independent ambulation Overall status at discharge: patient is back to baseline - Ambulatory Orders Ambulatory Orders: SP PFT screen Time Frame: 1 Month, Facility: [facility], Location: [facility] - Discharge Instructions Instructions: Levofloxacin (By mouth), How to Stop Smoking (DC), Pneumonia, Entry Level Installation Technician (GEN) Follow Up With: Elizabeth Dickey DO [Primary Care Provider] - 12/16/16 10:00 am Additional Instructions: Follow-up appointments: If there is not an appointment listed below, please call your physician and schedule a follow-up appointment. If you have congestive heart failure and your symptoms return, make an appointment with your physician. There is a PFT ordered. This is done at the [facility]. Please call them at [phone] to schedule the exam. Please keep your order and take with you to the appointment. Medication List: Carry an up to date list of medications you are taking at all time. We have given you an updated medication list including any new medications that you have been prescribed. Please provide that list to your primary provider Your prescriptions were called into [facility] on [address] [facility]. Symptoms: If your condition changes or you experience any of the following symptoms, notify your physician immediately: Unusual or worsening pain, fever, persistent nausea and vomiting, bleeding, increase in swelling (especially in your legs), sudden weight gain, extreme dizziness, chest pain, increased drainage or redness from a wound or incision. Go to the emergency department if you experience a problem with breathing. Weights: If you have a history of swelling or shortness of breath, weigh yourself daily and notify your physician if you have a weight gain of two or more pounds in one day or 5 or more pounds in a week. If you experience any of the warning signs for stroke: Sudden numbness or weakness of the face, arm or leg; especially on one side of the body, sudden confusion, trouble speaking or understanding, sudden trouble seeing in one or both eyes, sudden trouble walking, dizziness, loss of balance or coordination, sudden sever headache with no cause; Call 911 or go to the emergency room. Stroke is a medical emergency. Some risk factors for stroke: Age, cigarette smoking, diabetes, excessive alcohol consumption, family history , high blood pressure, overweight, physical inactivity, prior stroke, heart attack, diagnosis of carotid artery stenosis or other artery disease. If you smoke, STOP: Smoking or tobacco use significantly increases your risk of heart and lung disease. Your chance of disease greatly increases if you continue to smoke. For more information, call the [place] [employer] Interactive quit line for smoking cessation QUIT-NOW ( ) - Diet and Activity Activity: resume usual activities as tolerated Diet: low fat, low cholesterol, low salt diet Interval History: See below Hospital course: Mr. Lugo is a 71 year old male with Tobacco abuse, Vit D deficiency, HTN, HLD He was admitted and managed for sepsis secondary to Pneumonia Patient presented with fever and chills, tachycardia, tachypnea, leukocytosis with source of sepsis being pneumonia He is on Levaquin, pneumonia was possibly community acquired with suspected strep Sputum and blood culture were negative Leukocytosis , fever has resolved Patient had no O2 requirement at this time, he is hemodynamically stable Seen and evaluated at bedside with family, no new events, feels clinically improved Incidental finding of emphysema and aortic stenosis on CTA and ECHO respectively PFT scheduled as out-patient, patient is discharged on Levaquin po to complete 7 days of therapy Tobacco cessation encouraged , patient discharged on NRT Influenza and Pneumococcal Vaccine recommended Follow up with PCP PTOT recommends out-patient physical therapy, follow up with PCP to establish this Plan of care discussed with patient and his spouse , verbalized understanding Time spent discussing smoking cessation with patient: 3 to 10 minutes - Time Spent with Patient Total time spent providing and/or coordinating discharge services: Greater than 30 minutes - Constitutional Vitals: Temp Pulse Resp BP Pulse Ox 98.2 F 54 16 111/66 96 12/11/16 07:02 12/11/16 07:02 12/11/16 07:02 12/11/16 07:02 12/11/16 07:02 General appearance: Present: cooperative, A&O X 3, pleasant, no acute distress, loss of weight, answers questions appropriately - Head Head exam: Present: atraumatic, normocephalic - Eye Eye exam: Present: PERRL, conjuntiva pink, sclera anicteric Pupils: Present: PERRL - Neck Neck exam general surgery: Present: supple, trachea midline. Absent: lymphadenopathy - Respiratory Respiratory exam: Present: rhonchi - Cardiovascular Cardiovascular exam: Present: RRR, +S1, +S2, systolic murmur. Absent: diastolic murmur, gallop, rubs - GI/Abdominal GI/Abdominal exam: Present: normal bowel sounds, soft, no peritoneal signs. Absent: distended, tenderness - Extremities Exam Extremities exam: Present: warm, radial pulses palpable and symmetrical. Absent : calf tenderness, cyanotic, pedal edema - Neurological Exam Neurological exam: Present: alert, CN II-XII intact, oriented X3, no focal deficits. Absent: pronater drift, facial droop, speech deficit - Skin Skin exam: Present: dry, intact
[2016-12-11 11:19] VITALS: BP 136/81
== END 2016-12-11 12:15 | disposition home or self-care (01) | DRG 871 ==
LOC: EMEROO 20:34 → 3BNU 20:34 → SUATTDRO 12-09 04:06
PROVIDERS: ADMIT Internal Medicine; ATTEND Internal Medicine

== ENCOUNTER 2019-03-20 20:15 | Inpatient (IN) ==
[2019-03-20 21:18] LABS: Basophils % 0.3 %; Eosinophils % 0.2 %; Hemoglobin 14.7 g/dL (12.9-16.9); Immature Granulocytes % 0.5 % (0-4); Lymphocytes # 1.1 K/mcL (0.6-4.6); Lymphocytes % 12.1 %; Mean Corpuscular HGB Conc 32.7 g/dL (31.6-35.5); Mean Corpuscular Hemoglobin 32.3 pg (28.0-33.3); Mean Corpuscular Volume 98.9 fL (83.0-100.0); Mean Platelet Volume 8.3 fL (9.4-12.4); Monocytes # 0.5 K/mcL (0.0-1.3); Monocytes % 5.2 %; Neutrophils # 7.1 K/mcL (1.6-8.9); Platelet Count 183 K/mcL (140-400); Red Blood Count 4.55 M/mcL (4.19-5.50); Red Cell Distribution Width 14.9 % (11.5-14.5); Segmented Neutrophils % 81.7 %; White Blood Count 8.7 K/mcL (4.3-11.1)
[2019-03-20 21:22] LABS: Bilirubin,Urine Small (Negative); Blood,Urine Negative (Negative); Clarity,Urine Clear (Clear); Color,Urine Dark Yellow (Yellow); Glucose,Urine (UA) Normal (Normal); Ketones,Urine Trace mg/dL (Negative); Leukocyte Esterase,Urine Negative (Negative); Nitrite,Urine Negative (Negative); Protein,Urine 100 mg/dL (Neg-Trace); Urobilinogen,Urine Normal (Normal)
[2019-03-20 21:25] LABS: Bacteria,Urine None Seen per hpf (None-Few); Hyaline Casts,Urine None Seen per lpf (None-Few); RBC,Urine 0-3 per hpf (0-3); Squamous Epithelial Cell,Urine Many per lpf (None-Few); WBC,Urine 0-3 per hpf (0-3)
[2019-03-20 21:41] LABS: BUN/Creatinine Ratio 22 (6-26); Blood Urea Nitrogen 23 mg/dL (8-23); Calcium 10.6 mg/dL (8.6-10.3); Carbon Dioxide 30 mEq/L (23-29); Chloride 98 mEq/L (98-107); Glucose 136 mg/dL (70-105); Osmolality,Calculated 290 (280-300); Potassium 4.1 mEq/L (3.5-5.1); Sodium 137 mEq/L (136-145); eGFR For African Americans > 60 (> 60); eGFR For Non-African Americans > 60 (> 60)
[2019-03-20] MEDS ORDERED: Isovue-370 500 ML BOTTLE IVP ONE (22:25)
[2019-03-20] MEDS ORDERED: *HR* FentaNYL (PF) 100 MCG/2 ML VIAL IVP ONE (22:25)
[2019-03-21] MEDS ORDERED: Ondansetron 4 MG/2 ML VIAL IVP ONE (00:18)
[2019-03-21] MEDS ORDERED: Morphine Sulfate 2 MG/ML SYRINGE IVP ONE (00:47)
[2019-03-21] MEDS ORDERED: 0.9 % Sodium Chloride 1,000 ML IVC ONE (01:42)
[2019-03-21] MEDS ORDERED: Naloxone 0.4 MG/ML INJ IVP PRN (03:05)
[2019-03-21] MEDS: Morphine Sulfate 2 MG/ML SYRINGE IVP PRN ×3 (03:52→12:50)
[2019-03-21] MEDS: traZODone 50 MG TABLET PO PRN (03:53)
[2019-03-21 04:12] LABS: Basophils % 0.2 %; Eosinophils % 0.2 %; Hematocrit 42.2 % (37.5-50.1); Hemoglobin 13.6 g/dL (12.9-16.9); Immature Granulocytes % 0.5 % (0-4); Lymphocytes # 1.2 K/mcL (0.6-4.6); Lymphocytes % 14.8 %; Mean Corpuscular HGB Conc 32.2 g/dL (31.6-35.5); Mean Corpuscular Hemoglobin 32.2 pg (28.0-33.3); Mean Platelet Volume 9.1 fL (9.4-12.4); Monocytes # 0.5 K/mcL (0.0-1.3); Monocytes % 6.1 %; Neutrophils # 6.4 K/mcL (1.6-8.9); Platelet Count 181 K/mcL (140-400); Red Blood Count 4.22 M/mcL (4.19-5.50); Segmented Neutrophils % 78.2 %; White Blood Count 8.2 K/mcL (4.3-11.1)
[2019-03-21 04:32] LABS: BUN/Creatinine Ratio 25 (6-26); Blood Urea Nitrogen 23 mg/dL (8-23); Calcium 10.2 mg/dL (8.6-10.3); Carbon Dioxide 30 mEq/L (23-29); Chloride 99 mEq/L (98-107); Glucose 116 mg/dL (70-105); Osmolality,Calculated 289 (280-300); Potassium 4.1 mEq/L (3.5-5.1); Sodium 137 mEq/L (136-145); eGFR For African Americans > 60 (> 60); eGFR For Non-African Americans > 60 (> 60)
[2019-03-21] MEDS ORDERED: *HR* LORazepam 2 MG/ML VIAL IVP ONE (08:11)
[2019-03-21] MEDS ORDERED: Lidocaine Viscous Oral Soln 15 ML SOLUTION MM ONE (08:16)
[2019-03-21] MEDS ORDERED: Lidocaine Jelly 11 ml Syringe MM STA (08:21)
[2019-03-21] MEDS: Metoprolol XL (24 HR) Succ 25 MG TAB.ER.24H PO SCH ×2 (08:37→20:40)
[2019-03-21] MEDS: Aspirin 81 MG TAB.CHEW PO SCH (08:37)
[2019-03-21] MEDS: Furosemide 20 MG/2 ML VIAL IVP SCH (08:37)
[2019-03-21] MEDS: Acetaminophen IV 1,000 MG/100 ML INFUS..BTL IVPB SCH ×4 (08:40→23:47)
[2019-03-21] MEDS ORDERED: Cholecalciferol (D-3) 1,000 UNIT (25MCG) TABLET PO SCH (09:00)
[2019-03-21] MEDS ORDERED: Furosemide 40 MG TABLET PO SCH (09:00)
[2019-03-21] MEDS ORDERED: *HR* LORazepam 1 MG TABLET PO SCH (09:00)
[2019-03-21] MEDS ORDERED: 0.9 % Sodium Chloride 1,000 ML ONE (12:47)
[2019-03-21] MEDS: 0.9 % Sodium Chloride 1,000 ML IVC SCH (13:06)
[2019-03-21] MEDS ORDERED: Ipratropium/Albuterol Neb 3 ML IH PRN (16:01)
[2019-03-21] MEDS: Nicotine 7 MG PATCH.TD24 TD SCH (17:56)
[2019-03-21] MEDS: *HR* Heparin 5,000 UNIT/ML VIAL SQ SCH (17:57)
[2019-03-21] MEDS ORDERED: *HR* Metoprolol 5 MG/5 ML VIAL IVP PRN (18:15)
[2019-03-22 04:12] LABS: BUN/Creatinine Ratio 26 (6-26); Basophils % 0.6 %; Blood Urea Nitrogen 27 mg/dL (8-23); Calcium 9.8 mg/dL (8.6-10.3); Carbon Dioxide 31 mEq/L (23-29); Chloride 101 mEq/L (98-107); Eosinophils # 0.1 K/mcL (0.0-0.6); Eosinophils % 1.4 %; Glucose 105 mg/dL (70-105); Hematocrit 38.5 % (37.5-50.1); Hemoglobin 12.5 g/dL (12.9-16.9); Immature Granulocytes % 0.3 % (0-4); Lymphocytes # 1.4 K/mcL (0.6-4.6); Magnesium 2.1 mg/dL (1.6-2.6); Mean Corpuscular HGB Conc 32.5 g/dL (31.6-35.5); Mean Corpuscular Hemoglobin 32.4 pg (28.0-33.3); Mean Corpuscular Volume 99.7 fL (83.0-100.0); Mean Platelet Volume 9.2 fL (9.4-12.4); Monocytes # 0.7 K/mcL (0.0-1.3); Monocytes % 9.1 %; Neutrophils # 4.9 K/mcL (1.6-8.9); Osmolality,Calculated 299 (280-300); Platelet Count 164 K/mcL (140-400); Red Blood Count 3.86 M/mcL (4.19-5.50); Red Cell Distribution Width 14.9 % (11.5-14.5); Segmented Neutrophils % 68.6 %; Sodium 142 mEq/L (136-145); White Blood Count 7.1 K/mcL (4.3-11.1); eGFR For African Americans > 60 (> 60); eGFR For Non-African Americans > 60 (> 60)
[2019-03-22] MEDS: *HR* Heparin 5,000 UNIT/ML VIAL SQ SCH ×2 (05:21→17:45)
[2019-03-22] MEDS: Acetaminophen IV 1,000 MG/100 ML INFUS..BTL IVPB SCH ×4 (06:17→23:40)
[2019-03-22] MEDS: 0.9 % Sodium Chloride 1,000 ML IVC SCH (06:21)
[2019-03-22] MEDS: Aspirin 81 MG TAB.CHEW PO SCH (07:21)
[2019-03-22] MEDS: Metoprolol XL (24 HR) Succ 25 MG TAB.ER.24H PO SCH ×2 (07:22→20:55)
[2019-03-22] MEDS: Nicotine 7 MG PATCH.TD24 TD SCH (07:55)
[2019-03-22] MEDS: Furosemide 20 MG/2 ML VIAL IVP SCH (08:00)
[2019-03-22] MEDS ORDERED: Cyanocobalamin (B-12) 1,000 MCG TABLET PO SCH (09:00)
[2019-03-22] MEDS: *HR* LORazepam 2 MG/ML VIAL IVP PRN ×2 (09:22→16:15)
[2019-03-22] MEDS: traZODone 50 MG TABLET PO PRN (20:14)
[2019-03-23] MEDS: 0.9 % Sodium Chloride 1,000 ML IVC SCH ×2 (00:02→07:55)
[2019-03-23] MEDS: *HR* Heparin 5,000 UNIT/ML VIAL SQ SCH (05:55)
[2019-03-23] MEDS: Acetaminophen IV 1,000 MG/100 ML INFUS..BTL IVPB SCH (06:00)
[2019-03-23 06:39] VITALS: BP 95/60
[2019-03-23 07:00] LABS: Basophils % 0.5 %; Eosinophils # 0.1 K/mcL (0.0-0.6); Eosinophils % 2.3 %; Hematocrit 34.9 % (37.5-50.1); Hemoglobin 11.1 g/dL (12.9-16.9); Immature Granulocytes % 0.3 % (0-4); Lymphocytes # 1.6 K/mcL (0.6-4.6); Mean Corpuscular HGB Conc 31.8 g/dL (31.6-35.5); Mean Corpuscular Hemoglobin 32.5 pg (28.0-33.3); Mean Platelet Volume 9.1 fL (9.4-12.4); Monocytes # 0.4 K/mcL (0.0-1.3); Monocytes % 7.7 %; Neutrophils # 3.5 K/mcL (1.6-8.9); Platelet Count 126 K/mcL (140-400); Red Blood Count 3.42 M/mcL (4.19-5.50); Segmented Neutrophils % 61.2 %; White Blood Count 5.7 K/mcL (4.3-11.1)
[2019-03-23 07:27] LABS: BUN/Creatinine Ratio 29 (6-26); Blood Urea Nitrogen 26 mg/dL (8-23); Calcium 9.2 mg/dL (8.6-10.3); Carbon Dioxide 30 mEq/L (23-29); Chloride 103 mEq/L (98-107); Glucose 90 mg/dL (70-105); Magnesium 2.1 mg/dL (1.6-2.6); Osmolality,Calculated 296 (280-300); Potassium 3.6 mEq/L (3.5-5.1); Sodium 141 mEq/L (136-145); eGFR For African Americans > 60 (> 60); eGFR For Non-African Americans > 60 (> 60)
[2019-03-23] MEDS ORDERED: 0.9 % Sodium Chloride 1,000 ML IV ONE (08:00)
[2019-03-23] MEDS: Furosemide 20 MG/2 ML VIAL IVP SCH (08:01)
[2019-03-23] MEDS: Metoprolol XL (24 HR) Succ 25 MG TAB.ER.24H PO SCH (08:02)
[2019-03-23] MEDS: Aspirin 81 MG TAB.CHEW PO SCH (08:04)
[2019-03-23] MEDS: Nicotine 7 MG PATCH.TD24 TD SCH (08:18)
== END 2019-03-23 10:37 | disposition home or self-care (01) | DRG 389 ==
LOC: 3ANU 20:15 → EMEROOARM 20:15 → SUATTDRO 03-21 02:15 → 3ANU 03-21 02:41
PROVIDERS: ADMIT Student in an Organized Health Care Education/Training Program; ATTEND Pharmacist

== ENCOUNTER 2019-09-19 01:45 | Observation (INO) ==
[2019-09-19] MEDS ORDERED: Lidocaine/EPI 1:100k 1% 30 ML VIAL INFILT ONE (01:59)
[2019-09-19 02:29] LABS: Basophils % 0.3 %; Eosinophils # 0.1 K/mcL (0.0-0.6); Eosinophils % 0.7 %; Hematocrit 42.9 % (37.5-50.1); Hemoglobin 13.7 g/dL (12.9-16.9); Immature Granulocytes % 0.7 % (0-4); Lymphocytes % 11.6 %; Mean Corpuscular HGB Conc 31.9 g/dL (31.6-35.5); Mean Corpuscular Hemoglobin 33.3 pg (28.0-33.3); Mean Corpuscular Volume 104.4 fL (83.0-100.0); Mean Platelet Volume 9.1 fL (9.4-12.4); Monocytes # 0.5 K/mcL (0.0-1.3); Monocytes % 6.3 %; Neutrophils # 6.9 K/mcL (1.6-8.9); Platelet Count 122 K/mcL (140-400); Red Blood Count 4.11 M/mcL (4.19-5.50); Red Cell Distribution Width 13.9 % (11.5-14.5); Segmented Neutrophils % 80.4 %; White Blood Count 8.6 K/mcL (4.3-11.1)
[2019-09-19] MEDS ORDERED: Isovue-370 500 ML BOTTLE IVP ONE (02:29)
[2019-09-19 02:34] LABS: INR 1.1; Prothrombin Time 12.6 Seconds (9.4-12.1)
[2019-09-19 02:35] LABS: Bilirubin,Urine Negative (Negative); Blood,Urine Negative (Negative); Clarity,Urine Clear (Clear); Color,Urine Light-Yellow (Yellow); Glucose,Urine (UA) Normal (Normal); Ketones,Urine Negative (Negative); Leukocyte Esterase,Urine Negative (Negative); Nitrite,Urine Negative (Negative); Protein,Urine Trace mg/dL (Neg-Trace); Specific Gravity,Urine 1.019 (1.010-1.025); Urobilinogen,Urine Normal (Normal)
[2019-09-19 02:37] LABS: Activated Partial Thrombo Time 28.6 Seconds (26.0-36.0)
[2019-09-19 02:52] LABS: Alanine Aminotransferase 36 Units/L (7-52); Albumin 3.9 g/dL (3.5-5.7); Albumin/Globulin Ratio 1.3 (1.1-2.2); Alkaline Phosphatase 78 Units/L (34-104); Aspartate Amino Transferase 27 Units/L (13-39); BUN/Creatinine Ratio 23 (6-26); Bilirubin,Direct 0.1 mg/dL (0.0-0.2); Bilirubin,Indirect 0.3 mg/dL (0.0-1.0); Bilirubin,Total 0.4 mg/dL (0.3-1.0); Blood Urea Nitrogen 22 mg/dL (8-23); Calcium 9.6 mg/dL (8.6-10.3); Carbon Dioxide 27 mEq/L (23-29); Chloride 105 mEq/L (98-107); Globulin 3.1 g/dL (2.4-3.5); Glucose 87 mg/dL (70-105); Osmolality,Calculated 289 (280-300); Potassium 4.5 mEq/L (3.5-5.1); Sodium 138 mEq/L (136-145); Troponin I < 0.03 ng/mL (< 0.04); eGFR For African Americans > 60 (> 60); eGFR For Non-African Americans > 60 (> 60)
[2019-09-19] MEDS ORDERED: Acetaminophen 325 MG TABLET PO PRN (06:26)
[2019-09-19] MEDS ORDERED: *HR* Promethazine 25 MG/ML VIAL IVP PRN (06:26)
[2019-09-19] MEDS ORDERED: Naloxone 0.4 MG/ML INJ IVP PRN (06:26)
[2019-09-19] MEDS ORDERED: 0.9 % Sodium Chloride 1,000 ML IVC SCH (06:30)
[2019-09-19] MEDS ORDERED: *HR* OxyCODONE/APAP 5/325 TABLET PO PRN (08:51)
[2019-09-19] MEDS ORDERED: Aspirin 81 MG TAB.CHEW PO SCH (18:00)
[2019-09-19] MEDS ORDERED: Mirtazapine 15 MG TABLET PO SCH (21:00)
[2019-09-20 05:11] LABS: INR 1.2; Prothrombin Time 13.6 Seconds (9.4-12.1)
[2019-09-20 05:16] LABS: Basophils % 0.5 %; Eosinophils # 0.1 K/mcL (0.0-0.6); Eosinophils % 1.6 %; Hematocrit 36.2 % (37.5-50.1); Hemoglobin 11.5 g/dL (12.9-16.9); Immature Granulocytes % 0.5 % (0-4); Lymphocytes # 1.5 K/mcL (0.6-4.6); Mean Corpuscular HGB Conc 31.8 g/dL (31.6-35.5); Mean Platelet Volume 9.2 fL (9.4-12.4); Monocytes # 0.5 K/mcL (0.0-1.3); Monocytes % 8.2 %; Neutrophils # 4.1 K/mcL (1.6-8.9); Platelet Count 109 K/mcL (140-400); Red Blood Count 3.48 M/mcL (4.19-5.50); Segmented Neutrophils % 65.2 %; White Blood Count 6.3 K/mcL (4.3-11.1)
[2019-09-20 05:25] LABS: BUN/Creatinine Ratio 18 (6-26); Blood Urea Nitrogen 17 mg/dL (8-23); Calcium 8.3 mg/dL (8.6-10.3); Carbon Dioxide 24 mEq/L (23-29); Chloride 109 mEq/L (98-107); Glucose 87 mg/dL (70-105); Magnesium 1.9 mg/dL (1.6-2.6); Osmolality,Calculated 285 (280-300); Phosphorous 2.5 mg/dL (2.7-4.5); Potassium 3.7 mEq/L (3.5-5.1); Sodium 137 mEq/L (136-145); eGFR For African Americans > 60 (> 60); eGFR For Non-African Americans > 60 (> 60)
[2019-09-20] MEDS ORDERED: Perflutren Lipid Microsphere 1.3 ML in 0.9 % Sodium Chloride 8.7 ML IVP PRN (08:49)
[2019-09-20] MEDS ORDERED: Cyanocobalamin (B-12) 1,000 MCG TABLET PO SCH (09:00)
[2019-09-20 11:29] VITALS: BP 114/72
== END 2019-09-20 15:25 | disposition home health service (06) ==
LOC: EMEROOARM 01:45 → 3BNU 01:45 → SUATTDRO 05:22 → 3BNU 06:05
PROVIDERS: ADMIT Internal Medicine; ATTEND Internal Medicine

== ENCOUNTER 2019-11-28 09:51 | Inpatient (IN) ==
[2019-11-28] MEDS ORDERED: CeFAZolin Syr 2,000MG/20 ML 2,000 MG/20 ML SYRINGE IVPB ONE (10:02)
[2019-11-28] MEDS ORDERED: *HR* FentaNYL (PF) 100 MCG/2 ML VIAL ONE ×3 (10:03→14:03)
[2019-11-28] MEDS ORDERED: Lidocaine -MPF 2% 2 ML VIAL ONE (10:03)
[2019-11-28] MEDS ORDERED: *HR* Propofol 200 MG/20 ML VIAL IVP ONE (10:03)
[2019-11-28] MEDS ORDERED: Dexamethasone 4 MG/ML VIAL ONE (10:03)
[2019-11-28] MEDS ORDERED: *HR* Succinylcholine 200 MG/10 ML VIAL IVP ONE (10:03)
[2019-11-28] MEDS ORDERED: *HR* Rocuronium Bromide 50 MG/5 ML VIAL ONE (10:03)
[2019-11-28] MEDS ORDERED: Ondansetron 4 MG/2 ML VIAL ONE (10:03)
[2019-11-28] MEDS ORDERED: Ringers Solution, Lactated 1,000 ML IVC SCH (10:15)
[2019-11-28] MEDS ORDERED: *HR* FentaNYL (PF) 100 MCG/2 ML VIAL IVP PRN (10:31)
[2019-11-28] MEDS ORDERED: *HR* Promethazine 25 MG/ML VIAL IVP PRN (10:31)
[2019-11-28] MEDS ORDERED: Ondansetron 4 MG/2 ML VIAL IVP PRN (10:31)
[2019-11-28] MEDS ORDERED: Ondansetron ODT 4 MG TAB.RAPDIS SL ONE (10:31)
[2019-11-28] MEDS ORDERED: *HR* OxyCODONE Immed Rel 5 MG TABLET PO PRN (10:31)
[2019-11-28] MEDS ORDERED: *HR* HYDROmorphone PF 0.5 MG/0.5 ML SYRINGE IVP PRN (10:31)
[2019-11-28] MEDS ORDERED: Famotidine 20 MG/2 ML VIAL IVP ONE (10:31)
[2019-11-28] MEDS ORDERED: Acetaminophen IV 1,000 MG/100 ML INFUS..BTL IVPB ONE (10:34)
[2019-11-28] MEDS ORDERED: *HR* EPINEPHrine 30 MG/30 ML MDV ONE (12:08)
[2019-11-28] MEDS ORDERED: Lidocaine Jelly 6ml 1 APPL/6 ML JEL.PF.APP ONE (12:10)
[2019-11-28] MEDS ORDERED: Tranexamic Acid 1,000 MG/10 ML VIAL ONE (14:59)
[2019-11-28] MEDS ORDERED: Albumin Human 5% 12.5 GM/250 ML IV.SOLN ONE (15:05)
[2019-11-28 16:01] LABS: VBG Base Excess 0 mEq/L; VBG Chloride 104 mEq/L (98-107); VBG Glucose 118 mg/dl (65-95); VBG HCO3 29 mEq/L (21-27); VBG Ionized Calcium 1.23 mmol/L (1.15-1.35); VBG Oxygen Saturation 45 %; VBG PCO2 65 mmHg (41-51); VBG PH 7.25 pH Units (7.32-7.42); VBG PO2 29 mmHg (25-50); VBG Total CO2 31 mEq/L
[2019-11-28] MEDS ORDERED: 0.9 % Sodium Chloride 1,000 ML IVC SCH (17:16)
[2019-11-28] MEDS ORDERED: Naloxone 0.4 MG/ML INJ IVP PRN (17:16)
[2019-11-28] MEDS ORDERED: *HR* HYDROcodone/Acet 5/325 mg TABLET PO PRN (17:16)
[2019-11-28] MEDS: *HR* OxyCODONE/APAP 5/325 TABLET PO PRN (17:57)
[2019-11-28] MEDS ORDERED: Aspirin 81 MG TAB.CHEW PO SCH (18:00)
[2019-11-28] MEDS: Ipratropium/Albuterol Neb 3 ML IH SCH ×2 (19:34→22:57)
[2019-11-28 20:19] LABS: Hematocrit 30.3 % (37.5-50.1); Mean Corpuscular HGB Conc 32.3 g/dL (31.6-35.5); Mean Corpuscular Hemoglobin 34.6 pg (28.0-33.3); Mean Corpuscular Volume 107.1 fL (83.0-100.0); Platelet Count 157 K/mcL (140-400); Red Blood Count 2.83 M/mcL (4.19-5.50); Red Cell Distribution Width 13.5 % (11.5-14.5)
[2019-11-28 20:20] LABS: Hemoglobin 9.8 g/dL (12.9-16.9); White Blood Count 15.2 K/mcL (4.3-11.1)
[2019-11-28 20:33] LABS: BUN/Creatinine Ratio 24 (6-26); Blood Urea Nitrogen 22 mg/dL (8-23); Carbon Dioxide 27 mEq/L (23-29); Chloride 104 mEq/L (98-107); Glucose 169 mg/dL (70-105); Osmolality,Calculated 295 (280-300); Potassium 4.4 mEq/L (3.5-5.1); Sodium 139 mEq/L (136-145); eGFR For African Americans > 60 (> 60); eGFR For Non-African Americans > 60 (> 60)
[2019-11-28] MEDS: Gabapentin 300 MG CAPSULE PO SCH (20:59)
[2019-11-28] MEDS: Sennosides/Docusate Sodium TABLET PO SCH (20:59)
[2019-11-28] MEDS: Famotidine 20 MG TABLET PO SCH (20:59)
[2019-11-28] MEDS ORDERED: Mirtazapine 15 MG TABLET PO SCH (21:00)
[2019-11-28] MEDS ORDERED: Ketorolac 15 MG/ML VIAL IVP ONE (21:01)
[2019-11-28] MEDS: *HR* Heparin 5,000 UNIT/ML VIAL SQ SCH (22:16)
[2019-11-29] MEDS: Ipratropium/Albuterol Neb 3 ML IH SCH ×7 (03:26→23:27)
[2019-11-29] MEDS: *HR* OxyCODONE/APAP 5/325 TABLET PO PRN ×3 (04:20→18:38)
[2019-11-29 04:31] LABS: Basophils % 0.1 %; Hematocrit 28.1 % (37.5-50.1); Hemoglobin 8.8 g/dL (12.9-16.9); Immature Granulocytes % 0.7 % (0-4); Lymphocytes # 0.7 K/mcL (0.6-4.6); Lymphocytes % 5.8 %; Mean Corpuscular HGB Conc 31.3 g/dL (31.6-35.5); Mean Corpuscular Volume 105.2 fL (83.0-100.0); Mean Platelet Volume 9.4 fL (9.4-12.4); Monocytes # 0.9 K/mcL (0.0-1.3); Monocytes % 7.2 %; Neutrophils # 10.5 K/mcL (1.6-8.9); Platelet Count 140 K/mcL (140-400); Red Blood Count 2.67 M/mcL (4.19-5.50); Red Cell Distribution Width 13.6 % (11.5-14.5); Segmented Neutrophils % 86.2 %; White Blood Count 12.2 K/mcL (4.3-11.1)
[2019-11-29] MEDS: *HR* Heparin 5,000 UNIT/ML VIAL SQ SCH ×4 (05:33→22:01)
[2019-11-29] MEDS: Gabapentin 300 MG CAPSULE PO SCH (08:24)
[2019-11-29] MEDS: Famotidine 20 MG TABLET PO SCH ×2 (08:26→21:06)
[2019-11-29] MEDS: Sennosides/Docusate Sodium TABLET PO SCH ×2 (08:27→21:06)
[2019-11-29] MEDS ORDERED: Lactobacillus 1 EACH CAP.SPRINK PO SCH (09:00)
[2019-11-29] MEDS ORDERED: Naloxone 0.4 MG/ML INJ IVP PRN (11:36)
[2019-11-29] MEDS ORDERED: Gabapentin 300 MG CAPSULE PO SCH (15:00)
[2019-11-29] MEDS ORDERED: Albumin Human 5% 25.0 GM/500 ML IV.SOLN ONE (15:11)
[2019-11-29] MEDS: 0.9 % Sodium Chloride 1,000 ML IVC SCH (15:33)
[2019-11-29] MEDS: polyethylene glycoL 3350 17 GM POWD.PACK PO SCH (15:39)
[2019-11-29] MEDS: Albumin Human 5% 12.5 GM/250 ML IV.SOLN IVC SCH ×2 (15:42→15:53)
[2019-11-29 16:24] LABS: Basophils % 0.1 %; Hematocrit 23.1 % (37.5-50.1); Hemoglobin 7.7 g/dL (12.9-16.9); Immature Granulocytes % 0.8 % (0-4); Lymphocytes # 0.8 K/mcL (0.6-4.6); Lymphocytes % 5.5 %; Mean Corpuscular HGB Conc 33.3 g/dL (31.6-35.5); Mean Corpuscular Hemoglobin 33.8 pg (28.0-33.3); Mean Corpuscular Volume 101.3 fL (83.0-100.0); Mean Platelet Volume 9.6 fL (9.4-12.4); Monocytes # 1.4 K/mcL (0.0-1.3); Monocytes % 9.9 %; Neutrophils # 11.5 K/mcL (1.6-8.9); Platelet Count 115 K/mcL (140-400); Red Blood Count 2.28 M/mcL (4.19-5.50); Red Cell Distribution Width 13.5 % (11.5-14.5); Segmented Neutrophils % 83.7 %; White Blood Count 13.7 K/mcL (4.3-11.1)
[2019-11-29] MEDS: Aspirin 81 MG TAB.CHEW PO SCH (18:38)
[2019-11-29] MEDS: Nicotine 14 MG PATCH.TD24 TD SCH (20:19)
[2019-11-29] MEDS: Mirtazapine 15 MG TABLET PO SCH (21:05)
[2019-11-30] MEDS: 0.9 % Sodium Chloride 1,000 ML IVC SCH (02:37)
[2019-11-30] MEDS: Ipratropium/Albuterol Neb 3 ML IH SCH ×5 (04:01→20:01)
[2019-11-30 04:51] LABS: Hematocrit 27.8 % (37.5-50.1); Hemoglobin 9.1 g/dL (12.9-16.9); Mean Corpuscular HGB Conc 32.7 g/dL (31.6-35.5); Mean Corpuscular Hemoglobin 33.7 pg (28.0-33.3); Mean Platelet Volume 9.3 fL (9.4-12.4); Platelet Count 101 K/mcL (140-400); Red Cell Distribution Width 15.2 % (11.5-14.5); White Blood Count 12.1 K/mcL (4.3-11.1)
[2019-11-30 05:10] LABS: BUN/Creatinine Ratio 24 (6-26); Blood Urea Nitrogen 22 mg/dL (8-23); Calcium 8.3 mg/dL (8.6-10.3); Carbon Dioxide 26 mEq/L (23-29); Chloride 106 mEq/L (98-107); Glucose 124 mg/dL (70-105); Osmolality,Calculated 293 (280-300); Potassium 4.2 mEq/L (3.5-5.1); Sodium 139 mEq/L (136-145); eGFR For African Americans > 60 (> 60); eGFR For Non-African Americans > 60 (> 60)
[2019-11-30] MEDS: *HR* Heparin 5,000 UNIT/ML VIAL SQ SCH ×3 (05:42→21:15)
[2019-11-30] MEDS: polyethylene glycoL 3350 17 GM POWD.PACK PO SCH (08:03)
[2019-11-30] MEDS: Sennosides/Docusate Sodium TABLET PO SCH ×2 (08:03→21:15)
[2019-11-30] MEDS: *HR* OxyCODONE/APAP 5/325 TABLET PO PRN ×3 (08:03→17:38)
[2019-11-30] MEDS: Famotidine 20 MG TABLET PO SCH ×2 (08:03→21:20)
[2019-11-30] MEDS: Lactobacillus 1 EACH CAP.SPRINK PO SCH (08:03)
[2019-11-30] MEDS: Nicotine 14 MG PATCH.TD24 TD SCH (08:04)
[2019-11-30] MEDS: Aspirin 81 MG TAB.CHEW PO SCH (17:38)
[2019-11-30] MEDS: Mirtazapine 15 MG TABLET PO SCH (21:15)
[2019-12-01] MEDS: Ipratropium/Albuterol Neb 3 ML IH SCH ×6 (00:13→20:15)
[2019-12-01 04:41] LABS: Hematocrit 26.8 % (37.5-50.1); Hemoglobin 8.4 g/dL (12.9-16.9); Mean Corpuscular HGB Conc 31.3 g/dL (31.6-35.5); Mean Corpuscular Hemoglobin 31.9 pg (28.0-33.3); Mean Corpuscular Volume 101.9 fL (83.0-100.0); Mean Platelet Volume 9.7 fL (9.4-12.4); Platelet Count 109 K/mcL (140-400); Red Blood Count 2.63 M/mcL (4.19-5.50); Red Cell Distribution Width 15.9 % (11.5-14.5); White Blood Count 9.6 K/mcL (4.3-11.1)
[2019-12-01 04:58] LABS: BUN/Creatinine Ratio 23 (6-26); Blood Urea Nitrogen 18 mg/dL (8-23); Calcium 8.2 mg/dL (8.6-10.3); Carbon Dioxide 29 mEq/L (23-29); Chloride 107 mEq/L (98-107); Glucose 101 mg/dL (70-105); Osmolality,Calculated 286 (280-300); Potassium 4.7 mEq/L (3.5-5.1); Sodium 137 mEq/L (136-145); eGFR For African Americans > 60 (> 60); eGFR For Non-African Americans > 60 (> 60)
[2019-12-01] MEDS: *HR* Heparin 5,000 UNIT/ML VIAL SQ SCH ×3 (06:10→20:11)
[2019-12-01] MEDS: Sennosides/Docusate Sodium TABLET PO SCH ×2 (08:45→20:11)
[2019-12-01] MEDS: Lactobacillus 1 EACH CAP.SPRINK PO SCH (08:46)
[2019-12-01] MEDS: Nicotine 14 MG PATCH.TD24 TD SCH (08:46)
[2019-12-01] MEDS: polyethylene glycoL 3350 17 GM POWD.PACK PO SCH (08:46)
[2019-12-01] MEDS: Famotidine 20 MG TABLET PO SCH ×2 (08:46→20:11)
[2019-12-01] MEDS: *HR* OxyCODONE/APAP 5/325 TABLET PO PRN ×2 (09:57→16:43)
[2019-12-01] MEDS: Aspirin 81 MG TAB.CHEW PO SCH (19:26)
[2019-12-01] MEDS: Mirtazapine 15 MG TABLET PO SCH (20:12)
[2019-12-01] MEDS ORDERED: *HR* LORazepam 2 MG/ML VIAL IVP ONE (23:59)
[2019-12-02] MEDS: Ipratropium/Albuterol Neb 3 ML IH SCH ×7 (00:11→23:56)
[2019-12-02] MEDS ORDERED: Haloperidol Lactate 5 MG/ML VIAL IVP ONE (04:21)
[2019-12-02] MEDS: *HR* Heparin 5,000 UNIT/ML VIAL SQ SCH ×3 (05:04→20:11)
[2019-12-02 06:43] LABS: Hematocrit 27.2 % (37.5-50.1); Hemoglobin 8.7 g/dL (12.9-16.9); Mean Corpuscular Hemoglobin 32.7 pg (28.0-33.3); Mean Corpuscular Volume 102.3 fL (83.0-100.0); Mean Platelet Volume 9.5 fL (9.4-12.4); Platelet Count 111 K/mcL (140-400); Red Blood Count 2.66 M/mcL (4.19-5.50); Red Cell Distribution Width 15.4 % (11.5-14.5); White Blood Count 8.6 K/mcL (4.3-11.1)
[2019-12-02 06:56] LABS: BUN/Creatinine Ratio 20 (6-26); Blood Urea Nitrogen 16 mg/dL (8-23); Calcium 8.7 mg/dL (8.6-10.3); Carbon Dioxide 28 mEq/L (23-29); Chloride 106 mEq/L (98-107); Glucose 97 mg/dL (70-105); Osmolality,Calculated 285 (280-300); Potassium 4.3 mEq/L (3.5-5.1); Sodium 137 mEq/L (136-145); eGFR For African Americans > 60 (> 60); eGFR For Non-African Americans > 60 (> 60)
[2019-12-02] MEDS: Famotidine 20 MG TABLET PO SCH ×2 (10:07→20:10)
[2019-12-02] MEDS: Sennosides/Docusate Sodium TABLET PO SCH ×2 (10:07→20:11)
[2019-12-02] MEDS: Nicotine 14 MG PATCH.TD24 TD SCH (10:07)
[2019-12-02] MEDS: polyethylene glycoL 3350 17 GM POWD.PACK PO SCH (10:08)
[2019-12-02] MEDS: Lactobacillus 1 EACH CAP.SPRINK PO SCH (10:08)
[2019-12-02] MEDS: Aspirin 81 MG TAB.CHEW PO SCH (18:56)
[2019-12-02] MEDS: Mirtazapine 15 MG TABLET PO SCH (20:10)
[2019-12-02] MEDS: *HR* OxyCODONE/APAP 5/325 TABLET PO PRN (20:10)
[2019-12-02] MEDS ORDERED: QUEtiapine Fumarate 25 MG TABLET PO SCH (21:00)
[2019-12-03] MEDS: Ipratropium/Albuterol Neb 3 ML IH SCH ×6 (03:17→23:15)
[2019-12-03 05:56] LABS: Hematocrit 26.4 % (37.5-50.1); Hemoglobin 8.5 g/dL (12.9-16.9); Mean Corpuscular HGB Conc 32.2 g/dL (31.6-35.5); Mean Corpuscular Hemoglobin 32.6 pg (28.0-33.3); Mean Corpuscular Volume 101.1 fL (83.0-100.0); Mean Platelet Volume 9.6 fL (9.4-12.4); Platelet Count 125 K/mcL (140-400); Red Blood Count 2.61 M/mcL (4.19-5.50); Red Cell Distribution Width 15.1 % (11.5-14.5); White Blood Count 8.2 K/mcL (4.3-11.1)
[2019-12-03] MEDS: *HR* Heparin 5,000 UNIT/ML VIAL SQ SCH ×3 (06:03→21:53)
[2019-12-03 06:29] LABS: BUN/Creatinine Ratio 24 (6-26); Blood Urea Nitrogen 19 mg/dL (8-23); Calcium 8.6 mg/dL (8.6-10.3); Carbon Dioxide 27 mEq/L (23-29); Chloride 106 mEq/L (98-107); Glucose 101 mg/dL (70-105); Osmolality,Calculated 284 (280-300); Potassium 4.3 mEq/L (3.5-5.1); Sodium 136 mEq/L (136-145); eGFR For African Americans > 60 (> 60); eGFR For Non-African Americans > 60 (> 60)
[2019-12-03] MEDS: Sennosides/Docusate Sodium TABLET PO SCH ×2 (08:01→21:52)
[2019-12-03] MEDS: Famotidine 20 MG TABLET PO SCH ×2 (08:02→21:53)
[2019-12-03] MEDS: *HR* OxyCODONE/APAP 5/325 TABLET PO PRN ×2 (08:02→21:59)
[2019-12-03] MEDS: Lactobacillus 1 EACH CAP.SPRINK PO SCH (08:02)
[2019-12-03] MEDS: Nicotine 14 MG PATCH.TD24 TD SCH (08:03)
[2019-12-03] MEDS: polyethylene glycoL 3350 17 GM POWD.PACK PO SCH (08:03)
[2019-12-03] MEDS: Aspirin 81 MG TAB.CHEW PO SCH (17:15)
[2019-12-03] MEDS: Mirtazapine 15 MG TABLET PO SCH (21:53)
[2019-12-03] MEDS: QUEtiapine Fumarate 25 MG TABLET PO SCH (21:53)
[2019-12-04] MEDS: Ipratropium/Albuterol Neb 3 ML IH SCH ×5 (03:42→20:35)
[2019-12-04 05:38] LABS: Hematocrit 26.3 % (37.5-50.1); Hemoglobin 8.2 g/dL (12.9-16.9); Mean Corpuscular HGB Conc 31.2 g/dL (31.6-35.5); Mean Corpuscular Hemoglobin 32.5 pg (28.0-33.3); Mean Corpuscular Volume 104.4 fL (83.0-100.0); Mean Platelet Volume 9.7 fL (9.4-12.4); Platelet Count 142 K/mcL (140-400); Red Blood Count 2.52 M/mcL (4.19-5.50); Red Cell Distribution Width 15.2 % (11.5-14.5); White Blood Count 9.8 K/mcL (4.3-11.1)
[2019-12-04 05:58] LABS: BUN/Creatinine Ratio 23 (6-26); Blood Urea Nitrogen 19 mg/dL (8-23); Calcium 8.7 mg/dL (8.6-10.3); Carbon Dioxide 25 mEq/L (23-29); Chloride 105 mEq/L (98-107); Glucose 109 mg/dL (70-105); Osmolality,Calculated 281 (280-300); Potassium 4.6 mEq/L (3.5-5.1); Sodium 134 mEq/L (136-145); eGFR For African Americans > 60 (> 60); eGFR For Non-African Americans > 60 (> 60)
[2019-12-04] MEDS: *HR* Heparin 5,000 UNIT/ML VIAL SQ SCH ×3 (06:12→20:43)
[2019-12-04] MEDS: Famotidine 20 MG TABLET PO SCH ×2 (07:45→20:44)
[2019-12-04] MEDS: Nicotine 14 MG PATCH.TD24 TD SCH (07:46)
[2019-12-04] MEDS: Sennosides/Docusate Sodium TABLET PO SCH ×2 (07:46→20:44)
[2019-12-04] MEDS: Lactobacillus 1 EACH CAP.SPRINK PO SCH (07:46)
[2019-12-04] MEDS: polyethylene glycoL 3350 17 GM POWD.PACK PO SCH (07:48)
[2019-12-04] MEDS: *HR* OxyCODONE/APAP 5/325 TABLET PO PRN ×2 (14:01→20:44)
[2019-12-04] MEDS: Aspirin 81 MG TAB.CHEW PO SCH (16:29)
[2019-12-04] MEDS: Mirtazapine 15 MG TABLET PO SCH (20:43)
[2019-12-04] MEDS: QUEtiapine Fumarate 25 MG TABLET PO SCH (20:44)
[2019-12-05] MEDS: Ipratropium/Albuterol Neb 3 ML IH SCH ×6 (00:01→20:55)
[2019-12-05] MEDS: *HR* OxyCODONE/APAP 5/325 TABLET PO PRN ×3 (04:14→21:10)
[2019-12-05] MEDS: *HR* Heparin 5,000 UNIT/ML VIAL SQ SCH ×3 (04:14→20:48)
[2019-12-05] MEDS: Famotidine 20 MG TABLET PO SCH ×2 (07:44→20:47)
[2019-12-05] MEDS: Nicotine 14 MG PATCH.TD24 TD SCH (07:44)
[2019-12-05] MEDS: Lactobacillus 1 EACH CAP.SPRINK PO SCH (07:45)
[2019-12-05] MEDS: Sennosides/Docusate Sodium TABLET PO SCH ×2 (07:45→20:47)
[2019-12-05] MEDS: polyethylene glycoL 3350 17 GM POWD.PACK PO SCH (07:45)
[2019-12-05] MEDS: Aspirin 81 MG TAB.CHEW PO SCH (14:34)
[2019-12-05] MEDS: Mirtazapine 15 MG TABLET PO SCH (20:47)
[2019-12-05] MEDS: QUEtiapine Fumarate 25 MG TABLET PO SCH (20:47)
[2019-12-06] MEDS: Ipratropium/Albuterol Neb 3 ML IH SCH ×4 (00:14→11:51)
[2019-12-06] MEDS: *HR* Heparin 5,000 UNIT/ML VIAL SQ SCH (05:29)
[2019-12-06] MEDS: Sennosides/Docusate Sodium TABLET PO SCH (08:24)
[2019-12-06] MEDS: polyethylene glycoL 3350 17 GM POWD.PACK PO SCH (08:24)
[2019-12-06] MEDS: Lactobacillus 1 EACH CAP.SPRINK PO SCH (08:24)
[2019-12-06] MEDS: Famotidine 20 MG TABLET PO SCH (08:24)
[2019-12-06] MEDS: Nicotine 14 MG PATCH.TD24 TD SCH (08:24)
[2019-12-06] MEDS: *HR* OxyCODONE/APAP 5/325 TABLET PO PRN (08:25)
[2019-12-06 11:16] VITALS: BP 108/69
[2019-12-06] MEDS ORDERED: FLU Vac QV 20-21 (6Month+)/PF 0.5 ML SYRINGE IM ONE (11:40)
== END 2019-12-06 12:07 | disposition home or self-care (01) | DRG 164 ==
LOC: SAMDAY 09:51 → ICNU 17:04 → 2NNU 12-01 07:30
PROVIDERS: ADMIT Thoracic Surgery (Cardiothoracic Vascular Surgery); ATTEND Thoracic Surgery (Cardiothoracic Vascular Surgery)

== ENCOUNTER 2019-12-14 15:54 | Observation (INO) ==
[2019-12-14] MEDS ORDERED: Isovue-370 500 ML BOTTLE IVP ONE (16:12)
[2019-12-14 16:37] LABS: Basophils % 0.2 %; Eosinophils # 0.1 K/mcL (0.0-0.6); Eosinophils % 0.5 %; Hematocrit 29.8 % (37.5-50.1); Lymphocytes # 0.8 K/mcL (0.6-4.6); Lymphocytes % 6.8 %; Mean Corpuscular HGB Conc 30.2 g/dL (31.6-35.5); Mean Corpuscular Hemoglobin 31.7 pg (28.0-33.3); Mean Corpuscular Volume 104.9 fL (83.0-100.0); Mean Platelet Volume 9.8 fL (9.4-12.4); Monocytes # 0.7 K/mcL (0.0-1.3); Monocytes % 5.8 %; Neutrophils # 10.5 K/mcL (1.6-8.9); Platelet Count 249 K/mcL (140-400); Red Blood Count 2.84 M/mcL (4.19-5.50); Red Cell Distribution Width 15.2 % (11.5-14.5); Segmented Neutrophils % 85.7 %; White Blood Count 12.2 K/mcL (4.3-11.1)
[2019-12-14 17:15] LABS: Alanine Aminotransferase 134 Units/L (7-52); Albumin 3.1 g/dL (3.5-5.7); Albumin/Globulin Ratio 0.8 (1.1-2.2); Alkaline Phosphatase 116 Units/L (34-104); Aspartate Amino Transferase 105 Units/L (13-39); BUN/Creatinine Ratio 31 (6-26); Bilirubin,Indirect 0.4 mg/dL (0.0-1.0); Bilirubin,Total 0.4 mg/dL (0.3-1.0); Blood Urea Nitrogen 26 mg/dL (8-23); Calcium 8.9 mg/dL (8.6-10.3); Carbon Dioxide 24 mEq/L (23-29); Chloride 104 mEq/L (98-107); Globulin 3.9 g/dL (2.4-3.5); Glucose 119 mg/dL (70-105); Osmolality,Calculated 288 (280-300); Potassium 4.8 mEq/L (3.5-5.1); Sodium 136 mEq/L (136-145); Troponin I < 0.03 ng/mL (< 0.04); eGFR For African Americans > 60 (> 60); eGFR For Non-African Americans > 60 (> 60)
[2019-12-14] MEDS ORDERED: levoFLOXacin 750 MG/150 ML 750 MG/150 ML BAG IVPB ONE (17:22)
[2019-12-14] MEDS ORDERED: Naloxone 0.4 MG/ML INJ IVP PRN (19:53)
[2019-12-14] MEDS ORDERED: Ondansetron ODT 4 MG TAB.RAPDIS SL PRN (19:53)
[2019-12-14] MEDS ORDERED: Acetaminophen 325 MG TABLET PO PRN (19:53)
[2019-12-14] MEDS ORDERED: 0.9 % Sodium Chloride 1,000 ML IVC SCH (20:00)
[2019-12-14] MEDS: *HR* OxyCODONE/APAP 5/325 TABLET PO PRN (21:27)
[2019-12-14] MEDS: Mirtazapine 15 MG TABLET PO SCH (21:27)
[2019-12-14] MEDS: Sennosides 8.6 MG TABLET PO SCH (21:27)
[2019-12-15 04:05] LABS: Hematocrit 25.7 % (37.5-50.1); Hemoglobin 7.8 g/dL (12.9-16.9); Mean Corpuscular HGB Conc 30.4 g/dL (31.6-35.5); Mean Corpuscular Hemoglobin 31.6 pg (28.0-33.3); Mean Platelet Volume 9.7 fL (9.4-12.4); Platelet Count 228 K/mcL (140-400); Red Blood Count 2.47 M/mcL (4.19-5.50); Red Cell Distribution Width 15.2 % (11.5-14.5); White Blood Count 10.3 K/mcL (4.3-11.1)
[2019-12-15 04:06] LABS: INR 1.5; Prothrombin Time 17.5 Seconds (9.4-12.1)
[2019-12-15 04:23] LABS: Alanine Aminotransferase 111 Units/L (7-52); Albumin 2.6 g/dL (3.5-5.7); Albumin/Globulin Ratio 0.8 (1.1-2.2); Alkaline Phosphatase 93 Units/L (34-104); Aspartate Amino Transferase 73 Units/L (13-39); BUN/Creatinine Ratio 26 (6-26); Bilirubin,Total 0.5 mg/dL (0.3-1.0); Blood Urea Nitrogen 20 mg/dL (8-23); Calcium 8.3 mg/dL (8.6-10.3); Carbon Dioxide 25 mEq/L (23-29); Chloride 104 mEq/L (98-107); Globulin 3.4 g/dL (2.4-3.5); Glucose 97 mg/dL (70-105); Magnesium 1.9 mg/dL (1.6-2.6); Osmolality,Calculated 283 (280-300); Phosphorous 2.9 mg/dL (2.7-4.5); Potassium 4.1 mEq/L (3.5-5.1); Sodium 135 mEq/L (136-145); eGFR For African Americans > 60 (> 60); eGFR For Non-African Americans > 60 (> 60)
[2019-12-15 07:59] LABS: Hematocrit 26.2 % (37.5-50.1); Hemoglobin 7.8 g/dL (12.9-16.9)
[2019-12-15] MEDS: levoFLOXacin 500 MG/100 ML 500 MG/100 ML BAG IVPB SCH (09:38)
[2019-12-15] MEDS: Furosemide 40 MG TABLET PO SCH (09:41)
[2019-12-15] MEDS: Sennosides 8.6 MG TABLET PO SCH ×2 (09:43→19:59)
[2019-12-15] MEDS: *HR* OxyCODONE/APAP 5/325 TABLET PO PRN ×2 (09:50→20:00)
[2019-12-15 13:33] LABS: Hematocrit 26.4 % (37.5-50.1)
[2019-12-15] MEDS: Aspirin 81 MG TAB.CHEW PO SCH (16:48)
[2019-12-15] MEDS: Mirtazapine 15 MG TABLET PO SCH (19:59)
[2019-12-15 21:32] LABS: Hematocrit 24.9 % (37.5-50.1); Hemoglobin 7.6 g/dL (12.9-16.9)
[2019-12-16 02:30] LABS: Basophils % 0.1 %; Eosinophils # 0.1 K/mcL (0.0-0.6); Eosinophils % 0.8 %; Hematocrit 24.9 % (37.5-50.1); Hemoglobin 7.6 g/dL (12.9-16.9); Immature Granulocytes % 1.3 % (0-4); Lymphocytes # 0.8 K/mcL (0.6-4.6); Lymphocytes % 8.2 %; Mean Corpuscular HGB Conc 30.5 g/dL (31.6-35.5); Mean Corpuscular Hemoglobin 31.7 pg (28.0-33.3); Mean Corpuscular Volume 103.8 fL (83.0-100.0); Monocytes # 0.6 K/mcL (0.0-1.3); Monocytes % 6.3 %; Neutrophils # 7.7 K/mcL (1.6-8.9); Nucleated Red Blood Cells 0.2 /100 WBC (0); Platelet Count 200 K/mcL (140-400); Red Cell Distribution Width 15.2 % (11.5-14.5); Segmented Neutrophils % 83.3 %; White Blood Count 9.2 K/mcL (4.3-11.1)
[2019-12-16 02:48] LABS: BUN/Creatinine Ratio 24 (6-26); Blood Urea Nitrogen 19 mg/dL (8-23); Calcium 8.3 mg/dL (8.6-10.3); Carbon Dioxide 24 mEq/L (23-29); Chloride 105 mEq/L (98-107); Glucose 113 mg/dL (70-105); Osmolality,Calculated 283 (280-300); Potassium 3.8 mEq/L (3.5-5.1); Sodium 135 mEq/L (136-145); eGFR For African Americans > 60 (> 60); eGFR For Non-African Americans > 60 (> 60)
[2019-12-16] MEDS: Sennosides 8.6 MG TABLET PO SCH ×2 (09:00→19:34)
[2019-12-16] MEDS: Furosemide 40 MG TABLET PO SCH (09:00)
[2019-12-16] MEDS: Multivit/Ca/Min/Fe/FA 1 TAB TABLET PO SCH (09:01)
[2019-12-16] MEDS: Cholecalciferol (D-3) 1,000 UNIT (25MCG) TABLET PO SCH (09:01)
[2019-12-16] MEDS: levoFLOXacin 500 MG/100 ML 500 MG/100 ML BAG IVPB SCH (09:01)
[2019-12-16] MEDS: *HR* OxyCODONE/APAP 5/325 TABLET PO PRN ×2 (09:09→15:08)
[2019-12-16] MEDS ORDERED: *HR* OxyCODONE/APAP 5/325 TABLET PO PRN (13:22)
[2019-12-16] MEDS: Aspirin 81 MG TAB.CHEW PO SCH (17:52)
[2019-12-16] MEDS ORDERED: Cyanocobalamin (B-12) 1,000 MCG TABLET PO SCH (18:40)
[2019-12-16] MEDS: Mirtazapine 15 MG TABLET PO SCH (19:34)
[2019-12-17 05:06] LABS: Basophils % 0.3 %; Eosinophils # 0.1 K/mcL (0.0-0.6); Hemoglobin 7.6 g/dL (12.9-16.9); Immature Granulocytes % 1.8 % (0-4); Lymphocytes # 0.8 K/mcL (0.6-4.6); Lymphocytes % 10.5 %; Mean Corpuscular HGB Conc 30.4 g/dL (31.6-35.5); Mean Corpuscular Hemoglobin 31.7 pg (28.0-33.3); Mean Corpuscular Volume 104.2 fL (83.0-100.0); Mean Platelet Volume 9.8 fL (9.4-12.4); Monocytes # 0.5 K/mcL (0.0-1.3); Monocytes % 5.8 %; Neutrophils # 6.4 K/mcL (1.6-8.9); Platelet Count 247 K/mcL (140-400); Segmented Neutrophils % 80.6 %; White Blood Count 7.9 K/mcL (4.3-11.1)
[2019-12-17 05:20] LABS: Albumin 2.5 g/dL (3.5-5.7); Albumin/Globulin Ratio 0.7 (1.1-2.2); BUN/Creatinine Ratio 23 (6-26); Bilirubin,Direct 0.1 mg/dL (0.0-0.2); Bilirubin,Indirect 0.3 mg/dL (0.0-1.0); Bilirubin,Total 0.4 mg/dL (0.3-1.0); Blood Urea Nitrogen 16 mg/dL (8-23); Calcium 8.2 mg/dL (8.6-10.3); Carbon Dioxide 24 mEq/L (23-29); Chloride 104 mEq/L (98-107); Globulin 3.5 g/dL (2.4-3.5); Glucose 104 mg/dL (70-105); Magnesium 1.9 mg/dL (1.6-2.6); Osmolality,Calculated 281 (280-300); Sodium 135 mEq/L (136-145); eGFR For African Americans > 60 (> 60); eGFR For Non-African Americans > 60 (> 60)
[2019-12-17 05:21] LABS: % Iron Saturation 10 % (20-55); Iron 21 mcg/dL (65-175); Transferrin 147 mg/dL (203-362)
[2019-12-17 05:40] LABS: Ferritin 87 ng/mL (20-250)
[2019-12-17 05:51] LABS: Folate > 22.3 ng/mL (3.0-16.0); Vitamin B12 1474 pg/mL (250-1100)
[2019-12-17] MEDS: Multivit/Ca/Min/Fe/FA 1 TAB TABLET PO SCH (08:41)
[2019-12-17] MEDS: *HR* OxyCODONE/APAP 5/325 TABLET PO PRN (08:41)
[2019-12-17] MEDS: Furosemide 40 MG TABLET PO SCH (08:41)
[2019-12-17] MEDS: Cholecalciferol (D-3) 1,000 UNIT (25MCG) TABLET PO SCH (08:41)
[2019-12-17] MEDS: Sennosides 8.6 MG TABLET PO SCH ×2 (08:41→19:55)
[2019-12-17] MEDS ORDERED: levoFLOXacin 750 MG/150 ML 750 MG/150 ML BAG IVPB SCH (09:00)
[2019-12-17] MEDS: Ipratropium/Albuterol Neb 3 ML IH SCH ×2 (15:52→20:05)
[2019-12-17] MEDS: Aspirin 81 MG TAB.CHEW PO SCH (17:01)
[2019-12-17] MEDS: Mirtazapine 15 MG TABLET PO SCH (19:55)
[2019-12-18] MEDS: Ipratropium/Albuterol Neb 3 ML IH SCH ×4 (00:01→11:25)
[2019-12-18 00:50] LABS: Basophils % 0.3 %; Eosinophils # 0.1 K/mcL (0.0-0.6); Eosinophils % 0.7 %; Hematocrit 24.6 % (37.5-50.1); Hemoglobin 7.4 g/dL (12.9-16.9); Immature Granulocytes % 2.1 % (0-4); Lymphocytes # 0.7 K/mcL (0.6-4.6); Lymphocytes % 9.3 %; Mean Corpuscular HGB Conc 30.1 g/dL (31.6-35.5); Mean Corpuscular Hemoglobin 30.2 pg (28.0-33.3); Mean Corpuscular Volume 100.4 fL (83.0-100.0); Mean Platelet Volume 9.6 fL (9.4-12.4); Monocytes # 0.4 K/mcL (0.0-1.3); Monocytes % 5.5 %; Neutrophils # 6.2 K/mcL (1.6-8.9); Platelet Count 233 K/mcL (140-400); Red Blood Count 2.45 M/mcL (4.19-5.50); Red Cell Distribution Width 15.3 % (11.5-14.5); Segmented Neutrophils % 82.1 %; White Blood Count 7.6 K/mcL (4.3-11.1)
[2019-12-18 01:10] LABS: BUN/Creatinine Ratio 16 (6-26); Blood Urea Nitrogen 13 mg/dL (8-23); Calcium 7.8 mg/dL (8.6-10.3); Carbon Dioxide 28 mEq/L (23-29); Chloride 102 mEq/L (98-107); Glucose 109 mg/dL (70-105); Magnesium 1.8 mg/dL (1.6-2.6); Osmolality,Calculated 281 (280-300); Potassium 3.7 mEq/L (3.5-5.1); Sodium 135 mEq/L (136-145); eGFR For African Americans > 60 (> 60); eGFR For Non-African Americans > 60 (> 60)
[2019-12-18] MEDS ORDERED: Multivit/Ca/Min/Fe/FA 1 TAB TABLET PO SCH (07:00)
[2019-12-18] MEDS: Cholecalciferol (D-3) 1,000 UNIT (25MCG) TABLET PO SCH (07:13)
[2019-12-18] MEDS: Furosemide 40 MG TABLET PO SCH (07:13)
[2019-12-18] MEDS: Sennosides 8.6 MG TABLET PO SCH (07:13)
[2019-12-18] MEDS ORDERED: levoFLOXacin 750 MG TABLET PO SCH (09:00)
[2019-12-18 11:14] VITALS: BP 103/68
[2019-12-18] MEDS ORDERED: levoFLOXacin 750 MG TABLET PO ONE (12:02)
== END 2019-12-18 12:52 | disposition home health service (06) ==
LOC: EMEROOARM 15:54 → 2ANU 15:54 → SUATTDRO 18:46 → 2ANU 19:38
PROVIDERS: ADMIT Internal Medicine; ATTEND Internal Medicine

== ENCOUNTER 2020-10-04 14:12 | Observation (INO) ==
[2020-10-04] MEDS ORDERED: Ipratropium/Albuterol Neb 3 ML IH ONE (14:45)
[2020-10-04] MEDS ORDERED: predniSONE 20 MG TABLET PO ONE (14:48)
[2020-10-04 15:25] LABS: Hematocrit 36.5 % (37.5-50.1); Hemoglobin 11.5 g/dL (12.9-16.9); Mean Corpuscular HGB Conc 31.5 g/dL (31.6-35.5); Mean Corpuscular Hemoglobin 31.2 pg (28.0-33.3); Mean Corpuscular Volume 98.9 fL (83.0-100.0); Mean Platelet Volume 9.2 fL (9.4-12.4); Platelet Count 176 K/mcL (140-400); Red Blood Count 3.69 M/mcL (4.19-5.50); Red Cell Distribution Width 15.4 % (11.5-14.5); Segmented Neutrophils % 77.8 %; White Blood Count 6.8 K/mcL (4.3-11.1)
[2020-10-04 15:26] LABS: Basophils % 0.3 %; Eosinophils # 0.1 K/mcL (0.0-0.6); Eosinophils % 0.9 %; Immature Granulocytes % 0.6 % (0-4); Lymphocytes # 0.9 K/mcL (0.6-4.6); Lymphocytes % 12.7 %; Monocytes # 0.5 K/mcL (0.0-1.3); Monocytes % 7.7 %; Neutrophils # 5.3 K/mcL (1.6-8.9)
[2020-10-04 15:48] LABS: BUN/Creatinine Ratio 13 (6-26); Blood Urea Nitrogen 13 mg/dL (8-23); Calcium 9.5 mg/dL (8.6-10.3); Carbon Dioxide 26 mEq/L (23-29); Chloride 103 mEq/L (98-107); Glucose 98 mg/dL (70-105); Osmolality,Calculated 280 (280-300); Potassium 4.3 mEq/L (3.5-5.1); Sodium 135 mEq/L (136-145); eGFR For African Americans > 60 (> 60); eGFR For Non-African Americans > 60 (> 60)
[2020-10-04 15:56] LABS: Troponin I < 0.03 ng/mL (< 0.04)
[2020-10-04] MEDS ORDERED: Azithromycin 500 MG in 0.9 % Sodium Chloride 250 ML IVPB ONE (16:12)
[2020-10-04] MEDS ORDERED: cefTRIAXone 1,000 MG in Water for inj. (sterile) 10 ML IVP ONE (16:12)
[2020-10-04] MEDS ORDERED: Acetaminophen 325 MG TABLET PO PRN (16:28)
[2020-10-04] MEDS ORDERED: Melatonin 3 MG TABLET PO PRN (16:28)
[2020-10-04] MEDS ORDERED: Mag Hydrox/Al Hydrox/Simeth 30 ML UDC PO PRN (16:28)
[2020-10-04] MEDS ORDERED: Naloxone 0.4 MG/ML INJ IVP PRN (16:28)
[2020-10-04] MEDS ORDERED: Ondansetron ODT 4 MG TAB.RAPDIS SL PRN (16:28)
[2020-10-04] MEDS ORDERED: Albuterol 2.5 MG/3 ML NEBULIZER IH PRN (16:48)
[2020-10-04 17:35] LABS: Adenovirus Not Detected (Not Detect); Bordetella Pertussis Not Detected (Not Detect); Chlamydophila pneumoniae Not Detected (Not Detect); Coronavirus 229E Not Detected (Not Detect); Coronavirus HKU1 Not Detected (Not Detect); Coronavirus NL63 Not Detected (Not Detect); Coronavirus OC43 Not Detected (Not Detect); Human Metapneumovirus Not Detected (Not Detect); Human Rhinovirus/Enterovirus Not Detected (Not Detect); Influenza A Subtype 2009 H1 Not Detected (Not Detect); Influenza B Not Detected (Not Detect); Mycoplasma pneumoniae Not Detected (Not Detect); Parainfluenza Virus 1 Not Detected (Not Detect); Parainfluenza Virus 2 Not Detected (Not Detect); Parainfluenza Virus 3 Not Detected (Not Detect); Parainfluenza Virus 4 Not Detected (Not Detect); Respiratory Syncytial Virus Not Detected (Not Detect); SARS-CoV-2 Not Detected (Not Detect)
[2020-10-04] MEDS: Ipratropium/Albuterol Neb 3 ML IH SCH ×2 (19:51→23:02)
[2020-10-04] MEDS: Apixaban 5 MG TABLET PO SCH (19:56)
[2020-10-05] MEDS: Ipratropium/Albuterol Neb 3 ML IH SCH ×2 (03:42→07:21)
[2020-10-05 06:51] LABS: Hematocrit 32.8 % (37.5-50.1); Hemoglobin 10.2 g/dL (12.9-16.9); Mean Corpuscular HGB Conc 31.1 g/dL (31.6-35.5); Mean Corpuscular Hemoglobin 30.4 pg (28.0-33.3); Mean Corpuscular Volume 97.9 fL (83.0-100.0); Mean Platelet Volume 9.8 fL (9.4-12.4); Platelet Count 145 K/mcL (140-400); Red Blood Count 3.35 M/mcL (4.19-5.50); Red Cell Distribution Width 15.3 % (11.5-14.5); White Blood Count 6.5 K/mcL (4.3-11.1)
[2020-10-05 07:11] LABS: BUN/Creatinine Ratio 17 (6-26); Blood Urea Nitrogen 18 mg/dL (8-23); Calcium 9.3 mg/dL (8.6-10.3); Carbon Dioxide 26 mEq/L (23-29); Chloride 103 mEq/L (98-107); Glucose 166 mg/dL (70-105); Osmolality,Calculated 288 (280-300); Potassium 4.4 mEq/L (3.5-5.1); Sodium 136 mEq/L (136-145); eGFR For African Americans > 60 (> 60); eGFR For Non-African Americans > 60 (> 60)
[2020-10-05 07:24] VITALS: O2SAT 96
[2020-10-05] MEDS: Apixaban 5 MG TABLET PO SCH (08:14)
[2020-10-05] MEDS ORDERED: cefTRIAXone 1,000 MG in Water for inj. (sterile) 10 ML IVP SCH (09:00)
[2020-10-05] MEDS ORDERED: predniSONE 20 MG TABLET PO SCH (09:00)
[2020-10-05 09:07] VITALS: BP 101/67; PULSE 109; TEMP 97.6
[2020-10-05] MEDS ORDERED: Azithromycin 500 MG in 0.9 % Sodium Chloride 250 ML IVPB SCH (10:00)
== END 2020-10-05 11:05 | disposition home health service (06) ==
LOC: 2ANU 14:12 → EMEROOARM 14:12 → SUATTDRO 17:19 → 2ANU 18:15
PROVIDERS: ADMIT Family Medicine; ATTEND Family Medicine

== ENCOUNTER 2021-03-21 17:51 | Inpatient (IN) ==
[2021-03-21] MEDS ORDERED: Isovue-370 500 ML BOTTLE IVP ONE (18:32)
[2021-03-21 19:14] LABS: Basophils % 0.4 %; Bilirubin,Urine Negative (Negative); Blood,Urine Negative (Negative); Clarity,Urine Clear (Clear); Color,Urine Light-Yellow (Yellow); Eosinophils % 0.4 %; Glucose,Urine (UA) Normal (Normal); Hematocrit 35.2 % (37.5-50.1); Hemoglobin 11.4 g/dL (12.9-16.9); Immature Granulocytes % 1.5 % (0-4); Ketones,Urine Negative (Negative); Leukocyte Esterase,Urine Negative (Negative); Lymphocytes # 1.5 K/mcL (0.6-4.6); Lymphocytes % 15.2 %; Mean Corpuscular HGB Conc 32.4 g/dL (31.6-35.5); Mean Corpuscular Hemoglobin 32.6 pg (28.0-33.3); Mean Corpuscular Volume 100.6 fL (83.0-100.0); Mean Platelet Volume 8.8 fL (9.4-12.4); Monocytes # 1.2 K/mcL (0.0-1.3); Monocytes % 11.8 %; Neutrophils # 6.9 K/mcL (1.6-8.9); Nitrite,Urine Negative (Negative); Platelet Count 206 K/mcL (140-400); Protein,Urine Trace mg/dL (Neg-Trace); Red Cell Distribution Width 14.8 % (11.5-14.5); Segmented Neutrophils % 70.7 %; Specific Gravity,Urine 1.017 (1.010-1.025); Urobilinogen,Urine Normal (Normal); White Blood Count 9.7 K/mcL (4.3-11.1)
[2021-03-21 19:23] LABS: INR 1.7; Prothrombin Time 18.7 Seconds (9.4-12.1)
[2021-03-21 19:25] LABS: Activated Partial Thrombo Time 38.9 Seconds (26.0-36.0)
[2021-03-21 19:38] LABS: Alanine Aminotransferase 11 Units/L (7-52); Albumin 3.5 g/dL (3.5-5.7); Albumin/Globulin Ratio 0.9 (1.1-2.2); Alkaline Phosphatase 80 Units/L (34-104); Aspartate Amino Transferase 21 Units/L (13-39); BUN/Creatinine Ratio 13 (6-26); Bilirubin,Direct 0.2 mg/dL (0.0-0.2); Bilirubin,Indirect 0.6 mg/dL (0.0-1.0); Bilirubin,Total 0.8 mg/dL (0.3-1.0); Blood Urea Nitrogen 12 mg/dL (8-23); Carbon Dioxide 24 mEq/L (23-29); Chloride 101 mEq/L (98-107); Globulin 3.7 g/dL (2.4-3.5); Glucose 91 mg/dL (70-105); Osmolality,Calculated 275 (280-300); Potassium 4.1 mEq/L (3.5-5.1); Sodium 133 mEq/L (136-145); Total Protein 7.2 g/dL (6.4-8.9); eGFR For African Americans > 60 (> 60); eGFR For Non-African Americans > 60 (> 60)
[2021-03-21 19:49] LABS: Troponin I 0.06 ng/mL (< 0.04)
[2021-03-21 20:18] LABS: Influenza A PCR Negative (Negative); Influenza B PCR Negative (Negative); Resp. Syncytial Virus PCR Negative (Negative)
[2021-03-21 20:19] LABS: SARS-CoV-2 by PCR (In House) Negative (Negative)
[2021-03-21] MEDS ORDERED: Aspirin 325 MG TABLET PO ONE (21:48)
[2021-03-21] MEDS ORDERED: Naloxone 0.4 MG/ML INJ IVP PRN (22:56)
[2021-03-21] MEDS ORDERED: Ondansetron 4 MG/2 ML VIAL IVP PRN (22:56)
[2021-03-22] MEDS ORDERED: 0.9 % Sodium Chloride 1,000 ML IVC SCH (00:15)
[2021-03-22] MEDS: Mirtazapine 15 MG TABLET PO SCH ×2 (00:40→21:03)
[2021-03-22 06:54] LABS: Hematocrit 34.5 % (37.5-50.1); Hemoglobin 11.1 g/dL (12.9-16.9); Mean Corpuscular HGB Conc 32.2 g/dL (31.6-35.5); Mean Corpuscular Hemoglobin 32.3 pg (28.0-33.3); Mean Corpuscular Volume 100.3 fL (83.0-100.0); Mean Platelet Volume 9.5 fL (9.4-12.4); Platelet Count 167 K/mcL (140-400); Red Blood Count 3.44 M/mcL (4.19-5.50); Red Cell Distribution Width 14.7 % (11.5-14.5)
[2021-03-22 07:08] LABS: BUN/Creatinine Ratio 13 (6-26); Blood Urea Nitrogen 10 mg/dL (8-23); Carbon Dioxide 27 mEq/L (23-29); Chloride 103 mEq/L (98-107); Glucose 98 mg/dL (70-105); Osmolality,Calculated 277 (280-300); Potassium 3.8 mEq/L (3.5-5.1); Sodium 134 mEq/L (136-145); Troponin I 0.09 ng/mL (< 0.04); eGFR For African Americans > 60 (> 60); eGFR For Non-African Americans > 60 (> 60)
[2021-03-22] MEDS: Loratadine 10 MG TABLET PO SCH (08:02)
[2021-03-22] MEDS ORDERED: Isovue-370 500 ML BOTTLE IVP ONE (10:12)
[2021-03-22] MEDS ORDERED: Cyanocobalamin (B-12) 1,000 MCG/ML VIAL SQ ONE (10:15)
[2021-03-22] MEDS: Iron Sucrose Complex 200 MG in 0.9 % Sodium Chloride 100 ML IVPB SCH (11:27)
[2021-03-22] MEDS ORDERED: Ipratropium/Albuterol Neb 3 ML IH PRN (13:31)
[2021-03-22] MEDS: Aspirin 81 MG TAB.CHEW PO SCH (18:24)
[2021-03-22] MEDS: Sennosides/Docusate Sodium TABLET PO SCH (21:03)
[2021-03-23 07:24] LABS: Basophils % 0.4 %; Eosinophils # 0.1 K/mcL (0.0-0.6); Eosinophils % 0.9 %; Hematocrit 35.7 % (37.5-50.1); Hemoglobin 11.2 g/dL (12.9-16.9); Immature Granulocytes % 1.8 % (0-4); Lymphocytes # 1.3 K/mcL (0.6-4.6); Lymphocytes % 16.9 %; Mean Corpuscular HGB Conc 31.4 g/dL (31.6-35.5); Mean Corpuscular Hemoglobin 31.8 pg (28.0-33.3); Mean Corpuscular Volume 101.4 fL (83.0-100.0); Mean Platelet Volume 9.7 fL (9.4-12.4); Monocytes # 0.9 K/mcL (0.0-1.3); Monocytes % 11.9 %; Platelet Count 167 K/mcL (140-400); Red Blood Count 3.52 M/mcL (4.19-5.50); Red Cell Distribution Width 14.8 % (11.5-14.5); Segmented Neutrophils % 68.1 %; White Blood Count 7.4 K/mcL (4.3-11.1)
[2021-03-23 07:43] LABS: BUN/Creatinine Ratio 13 (6-26); Blood Urea Nitrogen 11 mg/dL (8-23); Calcium 9.1 mg/dL (8.6-10.3); Carbon Dioxide 25 mEq/L (23-29); Chloride 104 mEq/L (98-107); Glucose 90 mg/dL (70-105); Magnesium 1.9 mg/dL (1.6-2.6); Osmolality,Calculated 279 (280-300); Potassium 4.1 mEq/L (3.5-5.1); Sodium 135 mEq/L (136-145); eGFR For African Americans > 60 (> 60); eGFR For Non-African Americans > 60 (> 60)
[2021-03-23] MEDS: Iron Sucrose Complex 200 MG in 0.9 % Sodium Chloride 100 ML IVPB SCH (09:23)
[2021-03-23] MEDS: Lactobacillus 1 EACH CAP.SPRINK PO SCH (09:31)
[2021-03-23] MEDS: Ascorbic Acid 500 MG TABLET PO SCH (09:32)
[2021-03-23] MEDS: Sennosides/Docusate Sodium TABLET PO SCH ×2 (09:32→21:00)
[2021-03-23] MEDS: Cholecalciferol (D-3) 1,000 UNIT (25MCG) TABLET PO SCH (09:32)
[2021-03-23] MEDS: Multivit/Ca/Min/Fe/FA 1 TAB TABLET PO SCH (09:32)
[2021-03-23] MEDS: Loratadine 10 MG TABLET PO SCH (09:33)
[2021-03-23] MEDS: polyethylene glycoL 3350 17 GM POWD.PACK PO SCH (09:33)
[2021-03-23] MEDS ORDERED: Isovue-370 500 ML BOTTLE IVP ONE (16:51)
[2021-03-23] MEDS: Aspirin 81 MG TAB.CHEW PO SCH (18:19)
[2021-03-23] MEDS: Mirtazapine 15 MG TABLET PO SCH (21:00)
[2021-03-23] MEDS ORDERED: Famotidine 20 MG TABLET PO SCH (21:00)
[2021-03-23] MEDS ORDERED: *HR* OxyCODONE/APAP 5/325 TABLET PO PRN (21:15)
[2021-03-24 04:45] LABS: Basophils # 0.1 K/mcL (0.0-0.2); Basophils % 0.8 %; Eosinophils # 0.1 K/mcL (0.0-0.6); Eosinophils % 1.3 %; Hemoglobin 10.6 g/dL (12.9-16.9); Immature Granulocytes % 2.6 % (0-4); Lymphocytes # 1.5 K/mcL (0.6-4.6); Mean Corpuscular HGB Conc 32.1 g/dL (31.6-35.5); Mean Corpuscular Volume 102.8 fL (83.0-100.0); Mean Platelet Volume 8.9 fL (9.4-12.4); Monocytes # 0.9 K/mcL (0.0-1.3); Monocytes % 11.6 %; Neutrophils # 4.8 K/mcL (1.6-8.9); Platelet Count 172 K/mcL (140-400); Red Blood Count 3.21 M/mcL (4.19-5.50); Red Cell Distribution Width 14.6 % (11.5-14.5); Segmented Neutrophils % 63.7 %; White Blood Count 7.6 K/mcL (4.3-11.1)
[2021-03-24 05:04] LABS: BUN/Creatinine Ratio 14 (6-26); Blood Urea Nitrogen 12 mg/dL (8-23); Carbon Dioxide 24 mEq/L (23-29); Chloride 104 mEq/L (98-107); Glucose 88 mg/dL (70-105); Magnesium 1.8 mg/dL (1.6-2.6); Osmolality,Calculated 277 (280-300); Potassium 3.8 mEq/L (3.5-5.1); Sodium 134 mEq/L (136-145); eGFR For African Americans > 60 (> 60); eGFR For Non-African Americans > 60 (> 60)
[2021-03-24] MEDS ORDERED: Isovue-370 500 ML BOTTLE PO ONE (08:00)
[2021-03-24] MEDS: Multivit/Ca/Min/Fe/FA 1 TAB TABLET PO SCH (08:42)
[2021-03-24] MEDS: Cholecalciferol (D-3) 1,000 UNIT (25MCG) TABLET PO SCH (08:42)
[2021-03-24] MEDS: Loratadine 10 MG TABLET PO SCH (08:43)
[2021-03-24] MEDS: Lactobacillus 1 EACH CAP.SPRINK PO SCH (08:43)
[2021-03-24] MEDS: Sennosides/Docusate Sodium TABLET PO SCH (08:43)
[2021-03-24] MEDS: Ascorbic Acid 500 MG TABLET PO SCH (08:44)
[2021-03-24] MEDS: polyethylene glycoL 3350 17 GM POWD.PACK PO SCH (08:45)
[2021-03-24] MEDS ORDERED: Cyanocobalamin (B-12) 1,000 MCG TABLET PO SCH (09:00)
[2021-03-24] MEDS: Iron Sucrose Complex 200 MG in 0.9 % Sodium Chloride 100 ML IVPB SCH (09:45)
[2021-03-24 11:32] VITALS: BP 112/68; PULSE 61; TEMP 98; O2SAT 99
== END 2021-03-24 16:56 | disposition other institution (70) | DRG 605 ==
LOC: EMEROOARM 17:51 → 4WAOSI 17:51 → SUATTDRO 22:41 → 4WAOSI 23:20
PROVIDERS: ADMIT Internal Medicine; ATTEND Pharmacist

== ENCOUNTER 2021-09-04 21:47 | Observation (INO) ==
[2021-09-04] MEDS ORDERED: cefTRIAXone 1,000 MG in 0.9 % Sodium Chloride 10 ML IVP ONE (22:38)
[2021-09-04] MEDS ORDERED: Azithromycin 500 MG in 0.9 % Sodium Chloride 250 ML IVPB ONE (22:38)
[2021-09-04] MEDS ORDERED: 0.9 % Sodium Chloride 1,000 ML IVC ONE (22:38)
[2021-09-04] MEDS ORDERED: Ipratropium/Albuterol Neb 3 ML IH ONE (22:38)
[2021-09-04 23:17] LABS: Basophils % 0.2 %; Eosinophils % 0.2 %; Hematocrit 34.1 % (37.5-50.1); Hemoglobin 10.8 g/dL (12.9-16.9); Immature Granulocytes % 0.8 % (0-4); Lymphocytes # 0.9 K/mcL (0.6-4.6); Lymphocytes % 8.7 %; Mean Corpuscular HGB Conc 31.7 g/dL (31.6-35.5); Mean Corpuscular Hemoglobin 31.3 pg (28.0-33.3); Mean Corpuscular Volume 98.8 fL (83.0-100.0); Mean Platelet Volume 9.3 fL (9.4-12.4); Monocytes # 1.1 K/mcL (0.0-1.3); Monocytes % 11.1 %; Neutrophils # 7.9 K/mcL (1.6-8.9); Platelet Count 126 K/mcL (140-400); Red Blood Count 3.45 M/mcL (4.19-5.50)
[2021-09-04 23:27] LABS: INR 2.7; Prothrombin Time 29.4 Seconds (9.4-12.1)
[2021-09-04 23:29] LABS: Activated Partial Thrombo Time 35.5 Seconds (26.0-36.0)
[2021-09-04 23:36] LABS: VBG HCO3 24 mEq/L (21-27); VBG PCO2 36 mmHg (41-51); VBG PH 7.43 pH Units (7.32-7.42); VBG PO2 136 mmHg (25-50)
[2021-09-05 00:03] LABS: Alanine Aminotransferase 19 Units/L (7-52); Albumin 3.2 g/dL (3.5-5.7); Albumin/Globulin Ratio 0.9 (1.1-2.2); Alkaline Phosphatase 82 Units/L (34-104); Aspartate Amino Transferase 18 Units/L (13-39); BUN/Creatinine Ratio 19 (6-26); Bilirubin,Direct 0.3 mg/dL (0.0-0.2); Bilirubin,Indirect 0.6 mg/dL (0.0-1.0); Bilirubin,Total 0.9 mg/dL (0.3-1.0); Blood Urea Nitrogen 16 mg/dL (8-23); Calcium 8.7 mg/dL (8.6-10.3); Carbon Dioxide 22 mEq/L (23-29); Chloride 103 mEq/L (98-107); Globulin 3.5 g/dL (2.4-3.5); Glucose 108 mg/dL (70-105); Osmolality,Calculated 278 (280-300); Sodium 133 mEq/L (136-145); Total Protein 6.7 g/dL (6.4-8.9); Troponin I < 0.03 ng/mL (< 0.04); eGFR For African Americans > 60 (> 60); eGFR For Non-African Americans > 60 (> 60)
[2021-09-05 00:38] LABS: Bilirubin,Urine Negative (Negative); Blood,Urine Large (Negative); Clarity,Urine Turbid (Clear); Color,Urine Yellow (Yellow); Glucose,Urine (UA) Normal (Normal); Ketones,Urine Negative (Negative); Leukocyte Esterase,Urine Small (Negative); Mucus,Urine Few per lpf (None-Few); Nitrite,Urine Negative (Negative); PH,Urine 6.5 pH Units (5.0-8.0); Protein,Urine 50 mg/dL (Neg-Trace); RBC,Urine TNTC per hpf (0-3); Specific Gravity,Urine 1.029 (1.010-1.025)
[2021-09-05] MEDS ORDERED: Acetaminophen 325 MG TABLET PO PRN (04:47)
[2021-09-05] MEDS ORDERED: Naloxone 0.4 MG/ML INJ IVP PRN (04:47)
[2021-09-05] MEDS ORDERED: Furosemide 20 MG TABLET PO SCH (06:15)
[2021-09-05 06:59] LABS: Hematocrit 34.2 % (37.5-50.1); Hemoglobin 10.6 g/dL (12.9-16.9); Mean Corpuscular Hemoglobin 31.4 pg (28.0-33.3); Mean Corpuscular Volume 101.2 fL (83.0-100.0); Mean Platelet Volume 9.1 fL (9.4-12.4); Platelet Count 116 K/mcL (140-400); Red Blood Count 3.38 M/mcL (4.19-5.50); Red Cell Distribution Width 15.2 % (11.5-14.5)
[2021-09-05 07:24] LABS: % Iron Saturation 9 % (20-55); BUN/Creatinine Ratio 18 (6-26); Blood Urea Nitrogen 14 mg/dL (8-23); Calcium 8.3 mg/dL (8.6-10.3); Carbon Dioxide 21 mEq/L (23-29); Chloride 105 mEq/L (98-107); Glucose 95 mg/dL (70-105); Iron 20 mcg/dL (65-175); Osmolality,Calculated 276 (280-300); Potassium 4.1 mEq/L (3.5-5.1); Sodium 133 mEq/L (136-145); Transferrin 166 mg/dL (203-362); eGFR For African Americans > 60 (> 60); eGFR For Non-African Americans > 60 (> 60)
[2021-09-05 07:29] LABS: Troponin I 0.04 ng/mL (< 0.04)
[2021-09-05 07:46] LABS: Thyroid Stimulating Hormone 0.873 mcIU/mL (0.340-5.600)
[2021-09-05 07:48] LABS: Ferritin 177 ng/mL (20-250)
[2021-09-05 08:30] LABS: Procalcitonin 0.05 ng/mL (0.00-0.15)
[2021-09-05] MEDS: Cholecalciferol (D-3) 1,000 UNIT (25MCG) TABLET PO SCH (08:37)
[2021-09-05] MEDS: Lactobacillus 1 EACH CAP.SPRINK PO SCH (08:37)
[2021-09-05] MEDS: Aspirin Enteric Coated 81 MG Tablet PO SCH (08:38)
[2021-09-05] MEDS: Cyanocobalamin (B-12) 1,000 MCG TABLET PO SCH (08:38)
[2021-09-05] MEDS: Famotidine 20 MG TABLET PO SCH ×2 (08:38→20:05)
[2021-09-05 08:56] LABS: Folate > 22.3 ng/mL (3.0-16.0); Vitamin B12 679 pg/mL (250-1100); Vitamin D 25 Hydroxy 48 ng/mL (30-80)
[2021-09-05] MEDS ORDERED: Loratadine 10 MG TABLET PO SCH (09:00)
[2021-09-05] MEDS: Levalbuterol Neb 1.25 MG/3 ML IH SCH ×3 (11:28→22:35)
[2021-09-05 11:50] LABS: Adenovirus Not Detected (Not Detect); Bordetella Pertussis Not Detected (Not Detect); Chlamydophila pneumoniae Not Detected (Not Detect); Coronavirus 229E Not Detected (Not Detect); Coronavirus HKU1 Not Detected (Not Detect); Coronavirus NL63 Not Detected (Not Detect); Coronavirus OC43 Not Detected (Not Detect); Human Metapneumovirus Not Detected (Not Detect); Human Rhinovirus/Enterovirus Not Detected (Not Detect); Influenza A Subtype 2009 H1 Not Detected (Not Detect); Influenza B Not Detected (Not Detect); Mycoplasma pneumoniae Not Detected (Not Detect); Parainfluenza Virus 1 Not Detected (Not Detect); Parainfluenza Virus 2 Not Detected (Not Detect); Parainfluenza Virus 3 Not Detected (Not Detect); Parainfluenza Virus 4 Not Detected (Not Detect); Respiratory Syncytial Virus Not Detected (Not Detect); SARS-CoV-2 Not Detected (Not Detect)
[2021-09-05] MEDS ORDERED: Dexmedetomidine HCl 400 MCG/100 ML MLS IVC SCH (16:15)
[2021-09-05] MEDS ORDERED: Mirtazapine 15 MG TABLET PO SCH (21:00)
[2021-09-05] MEDS ORDERED: cefTRIAXone 1,000 MG in 0.9 % Sodium Chloride 10 ML IVP SCH (22:00)
[2021-09-05] MEDS ORDERED: Azithromycin 500 MG in 0.9 % Sodium Chloride 250 ML IVPB SCH (22:00)
[2021-09-06 01:05] LABS: Hematocrit 31.3 % (37.5-50.1); Mean Corpuscular HGB Conc 31.9 g/dL (31.6-35.5); Mean Corpuscular Hemoglobin 31.6 pg (28.0-33.3); Mean Corpuscular Volume 99.1 fL (83.0-100.0); Mean Platelet Volume 9.6 fL (9.4-12.4); Platelet Count 118 K/mcL (140-400); Red Blood Count 3.16 M/mcL (4.19-5.50); Red Cell Distribution Width 14.9 % (11.5-14.5); White Blood Count 8.3 K/mcL (4.3-11.1)
[2021-09-06 01:27] LABS: BUN/Creatinine Ratio 16 (6-26); Blood Urea Nitrogen 13 mg/dL (8-23); Calcium 8.4 mg/dL (8.6-10.3); Carbon Dioxide 25 mEq/L (23-29); Chloride 101 mEq/L (98-107); Chol/HDL Ratio 2.7 (0-4.9); Cholesterol 85 mg/dL (< 200); Glucose 110 mg/dL (70-105); HDL Cholesterol 31 mg/dL (40-59); LDL Cholesterol,Calculated 46 mg/dL (< 100); Osmolality,Calculated 275 (280-300); Potassium 3.5 mEq/L (3.5-5.1); Sodium 132 mEq/L (136-145); Triglycerides 42 mg/dL (< 150); eGFR For African Americans > 60 (> 60); eGFR For Non-African Americans > 60 (> 60)
[2021-09-06] MEDS: Levalbuterol Neb 1.25 MG/3 ML IH SCH (03:57)
[2021-09-06] MEDS ORDERED: Fluticasone Propionate Nasal 50 MCG/SPRAY BOTTLE NS PRN (07:21)
[2021-09-06] MEDS ORDERED: *HR* OxyCODONE/APAP 7.5/325 TABLET PO PRN (07:21)
[2021-09-06] MEDS ORDERED: Ipratropium/Albuterol Neb 3 ML IH PRN (07:22)
[2021-09-06] MEDS ORDERED: Cyanocobalamin (B-12) 1,000 MCG TABLET PO SCH (07:30)
[2021-09-06] MEDS ORDERED: Iopamidol - 370 500 ML MLS IVP ONE (08:10)
[2021-09-06] MEDS: Cyanocobalamin (B-12) 1,000 MCG TABLET PO SCH (08:46)
[2021-09-06] MEDS: Aspirin Enteric Coated 81 MG Tablet PO SCH (08:46)
[2021-09-06] MEDS: Famotidine 20 MG TABLET PO SCH ×2 (08:47→19:45)
[2021-09-06] MEDS: Ascorbic Acid 500 MG TABLET PO SCH (08:47)
[2021-09-06] MEDS: Cholecalciferol (D-3) 1,000 UNIT (25MCG) TABLET PO SCH (08:47)
[2021-09-06] MEDS: Lactobacillus 1 EACH CAP.SPRINK PO SCH (08:47)
[2021-09-06] MEDS: Apixaban 5 MG TABLET PO SCH ×2 (08:47→19:45)
[2021-09-06] MEDS: Multivit/Ca/Min/Fe/FA 1 TAB TABLET PO SCH (08:47)
[2021-09-06] MEDS: Loratadine 10 MG TABLET PO SCH (08:47)
[2021-09-06] MEDS ORDERED: [UNRECOGNIZED DRUG - OTHER] PO SCH (09:00)
[2021-09-06] MEDS ORDERED: Cholecalciferol (D-3) 1,000 UNIT (25MCG) TABLET PO SCH (09:00)
[2021-09-06 16:37] LABS: C.difficile Toxin A/B Gene PCR Not detected (Not detect); Campylobacter by PCR Not detected (Not detect); Enteroaggregative E.coli(EAEC) Not detected (Not detect); Enteropathogenic E.coli(EPEC) Not detected (Not detect); Enterotoxigenic E.coli (ETEC) Not detected (Not detect); Plesiomonas shigelloides PCR Not detected (Not detect); Salmonella PCR Not detected (Not detect); Shigalike tox-prod E coli STEC Not detected (Not detect); Vibrio PCR Not detected (Not detect); Vibrio cholerae PCR Not detected (Not detect); Yersinia enterocolitica PCR Not detected (Not detect)
[2021-09-06 16:38] LABS: Adenovirus F 40/41 PCR Not detected (Not detect); Astrovirus PCR Not detected (Not detect); Cryptosporidium by PCR Not detected (Not detect); Cyclospora cayetanensis PCR Not detected (Not detect); Entamoeba histolytica PCR Not detected (Not detect); Giardia lamblia PCR Not detected (Not detect); Norovirus GI/GII PCR Not detected (Not detect); Rotavirus A PCR Not detected (Not detect); Sapovirus PCR Not detected (Not detect); Shig/EnteroinvasiveE coli EIEC Not detected (Not detect)
[2021-09-06] MEDS: Furosemide 20 MG/2 ML VIAL IVP SCH (17:13)
[2021-09-06] MEDS ORDERED: levoFLOXacin 750 MG TABLET PO SCH (18:00)
[2021-09-06] MEDS ORDERED: Melatonin 3 MG TABLET PO PRN (18:25)
[2021-09-06 19:49] VITALS: TEMP 98.4
[2021-09-06] MEDS ORDERED: Mirtazapine 15 MG TABLET PO SCH (21:00)
[2021-09-07 03:48] LABS: Hematocrit 31.7 % (37.5-50.1); Hemoglobin 10.5 g/dL (12.9-16.9); Mean Corpuscular HGB Conc 33.1 g/dL (31.6-35.5); Mean Corpuscular Hemoglobin 32.8 pg (28.0-33.3); Mean Corpuscular Volume 99.1 fL (83.0-100.0); Mean Platelet Volume 9.1 fL (9.4-12.4); Platelet Count 133 K/mcL (140-400); Red Cell Distribution Width 15.1 % (11.5-14.5); White Blood Count 7.2 K/mcL (4.3-11.1)
[2021-09-07 04:00] LABS: BUN/Creatinine Ratio 14 (6-26); Blood Urea Nitrogen 12 mg/dL (8-23); Calcium 8.6 mg/dL (8.6-10.3); Carbon Dioxide 25 mEq/L (23-29); Chloride 100 mEq/L (98-107); Glucose 79 mg/dL (70-105); Magnesium 1.8 mg/dL (1.6-2.6); Osmolality,Calculated 275 (280-300); Phosphorous 2.9 mg/dL (2.7-4.5); Potassium 3.9 mEq/L (3.5-5.1); Sodium 133 mEq/L (136-145); eGFR For African Americans > 60 (> 60); eGFR For Non-African Americans > 60 (> 60)
[2021-09-07 06:30] VITALS: BP 122/81; PULSE 72; O2SAT 94
[2021-09-07] MEDS: Lactobacillus 1 EACH CAP.SPRINK PO SCH (07:38)
[2021-09-07] MEDS: Ascorbic Acid 500 MG TABLET PO SCH (07:38)
[2021-09-07] MEDS: Furosemide 20 MG/2 ML VIAL IVP SCH (07:40)
[2021-09-07] MEDS: Famotidine 20 MG TABLET PO SCH (07:41)
[2021-09-07] MEDS: Multivit/Ca/Min/Fe/FA 1 TAB TABLET PO SCH (07:41)
[2021-09-07] MEDS: Loratadine 10 MG TABLET PO SCH (07:42)
[2021-09-07] MEDS: Cyanocobalamin (B-12) 1,000 MCG TABLET PO SCH (07:42)
[2021-09-07] MEDS: Apixaban 5 MG TABLET PO SCH (07:42)
[2021-09-07] MEDS: Aspirin Enteric Coated 81 MG Tablet PO SCH (07:42)
[2021-09-07] MEDS: Cholecalciferol (D-3) 1,000 UNIT (25MCG) TABLET PO SCH (07:43)
== END 2021-09-07 14:57 | disposition home health service (06) ==
LOC: EMEROOARM 21:47 → 3NENU 21:47 → SUATTDRO 09-05 03:57 → 3NENU 09-05 04:47
PROVIDERS: ADMIT Internal Medicine; ATTEND Internal Medicine